=== PATIENT | female | born 1970 | race Caucasian/White ===

== ENCOUNTER 2018-09-11 12:33 | Emergency (ER) | payer OTHER ==
[2018-09-11 13:02] VITALS: BP 155/106
--- NOTE | 2018-09-11 13:09 | EDM.PDOC ---
ED HPI GENERAL MEDICAL PROBLEM - General Chief Complaint: Head Injury Stated Complaint: HEAD INJURY Time Seen by Provider: 09/11/18 12:44 - History of Present Illness INITIAL COMMENTS - FREE TEXT/NARRATIVE: HISTORY AND PHYSICAL: History of present illness: The patient is a 48-year-old female who presents with persistent discomfort and swelling to the right side of her scalp since she sustained a fall about 3 weeks ago. The patient was going up to status and on the third step she missed it and then fell backwards striking her right parietal scalp area. The patient has not passed out or blacked out but had a big area of soft tissue swelling that has since gone away. After this fall in the first few days she did have some nausea and vomiting and some instability of gait and reenter ears but those symptoms have all improved. The patient says she is concerned now because she has never totally felt quite right and is still felt off in general and now she feels like the area of the old injury is starting to swell up again and is causing discomfort. The patient denies any neck or back pain no weakness numbness or tingling in her extremities and no abdominal pain chest pain or shortness of breath. The patient follows with Dr. Fernandez in the clinic but did not connect with him about the symptoms or these problems. She is eating and drinking normally currently and only intermittently will have some nausea or vomiting due to her anxiety. Review of systems: As per history of present illness and below otherwise all systems reviewed and negative. Past medical history: As per history of present illness and as reviewed below otherwise noncontributory. Surgical history: As per history of present illness and as reviewed below otherwise noncontributory. Social history: No reported history of drug or alcohol abuse. Family history: As per history of present illness and as reviewed below otherwise noncontributory. Physical exam: HEENT: Atraumatic, normocephalic, no palatal scalp deformities appreciated and there is tenderness with palpation of the upper right parietal scalp area without any gross soft tissue swelling defects or deformities, pupils reactive, negative for conjunctival pallor or scleral icterus, mucous membranes moist, throat clear, neck supple, nontender, trachea midline. Lungs: Clear to auscultation, breath sounds equal bilaterally, chest nontender. Heart: S1S2, regular rate and rhythm no overt murmurs Abdomen: Soft, nondistended, nontender. NABS Pelvis: Deferred Genitourinary: Deferred. Rectal: Deferred. Extremities: Atraumatic, range of motion Neurovascular unremarkable. Neuro: Awake, alert, oriented. Cranial nerves II through XII unremarkable. Cerebellum unremarkable. Motor and sensory unremarkable throughout. Exam nonfocal. Diagnostics: CT of the head Therapeutics: Discussed with the patient that as her fall and injury occurred about 3 weeks ago she is currently outside of the concussive syndrome window of 2 weeks and if her CAT scan is negative she would need to be seen by her provider in the clinic and probably referred to neurology for any persistent headaches or symptoms. She states understanding Impression: Prolonged concussive syndrome Definitive disposition and diagnosis as appropriate pending reevaluation and review of above. Head Pain Score (Numeric/FACES): 4 - Related Data Allergies Allergy/AdvReac Type Severity Reaction Status Date / Time hydrocodone bitartrate Allergy Cannot Verified 09/11/18 12:45 [From Vicoprofen] Remember ibuprofen [From Vicoprofen] Allergy Cannot Verified 09/11/18 12:45 Remember meperidine HCl [From Demerol] Allergy Cannot Verified 09/11/18 12:45 Remember promethazine Allergy Cannot Verified 09/11/18 12:45 Remember Home Meds: Home Meds Propranolol HCl [Propranolol] 10 mg PO ASDIRECTED 09/11/18 [History] Past Medical History Other HEENT History: hx of relapsing polychondritis Cardiovascular History: Reports: None, Hypertension Other Respiratory History: hx of bronchopneumonia Gastrointestinal History: Reports: GERD 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: Musculoskeletal History: Reports: Back Pain, Chronic Neurological History: Reports: Migraines Other Neuro History: migraines in the past Psychiatric History: Reports: Anxiety Endocrine/Metabolic History: Reports: Hypothyroidism, Obesity/BMI 30+ Hematologic History: Reports: None Immunologic History: Reports: None Oncologic (Cancer) History: Reports: None Dermatologic History: Reports: None - Infectious Disease History Infectious Disease History: Reports: None - Past Surgical History Head Surgeries/Procedures: Reports: None HEENT Surgical History: Reports: Adenoidectomy, Eye Surgery, Tonsillectomy GI Surgical History: Reports: Hernia, Inguinal, Hernia Repair/Other Female Surgical History: Reports: Breast Implant, Tubal Ligation Social & Family History - Family History Family Medical History: Noncontributory - Tobacco Use Years of Tobacco use: 18 - Caffeine Use Caffeine Use: Reports: Soda - Alcohol Use Days Per Week of Alcohol Use: 7 Number of Drinks Per Day: 2 Total Drinks Per Week: 14 - Recreational Drug Use Recreational Drug Use: No ED ROS GENERAL - Review of Systems Review Of Systems: ROS reveals no pertinent complaints other than HPI. ED EXAM, HEAD INJURY - Physical Exam Exam: See Below (See dictation) Course - Vital Signs Last Recorded V/S: Last Vital Signs Temp 36.3 C 09/11/18 12:47 Pulse 96 09/11/18 12:47 Resp 15 09/11/18 12:47 BP 155/106 H 09/11/18 12:47 Pulse Ox 98 09/11/18 12:47 Departure - Departure Time of Disposition: 14:19 Disposition: Home, Self-Care 01 Condition: Good Clinical Impression: Postconcussion syndrome - Discharge Information Referrals: Wai Fernandez MD [Primary Care Provider] - Forms: ED Department Discharge Additional Instructions: The following information is given to patients seen in the emergency department who are being discharged to home. This information is to outline your options for follow-up care. We provide all patients seen in our emergency department with a follow-up referral. The need for follow-up, as well as the timing and circumstances, are variable depending upon the specifics of your emergency department visit. If you don't have a primary care physician on staff, we will provide you with a referral. We always advise you to contact your personal physician following an emergency department visit to inform them of the circumstance of the visit and for follow-up with them and/or the need for any referrals to a consulting specialist. The emergency department will also refer you to a specialist when appropriate. This referral assures that you have the opportunity for followup care with a specialist. All of these measure are taken in an effort to provide you with optimal care, which includes your followup. Under all circumstances we always encourage you to contact your private physician who remains a resource for coordinating your care. When calling for followup care, please make the office aware that this follow-up is from your recent emergency room visit. If for any reason you are refused follow-up, please contact the [facility] emergency department at and ask to speak to the emergency department charge nurse. [facility] Primary care- Internal Medicine and [facility] [address] [place] [address] Continue with Symptomatic care and [id number] meds as needed. Please call and schedule a follow-up appointment with Dr. Fernandez or one of his associates to further discuss these symptoms and potentially get referral to neurology. Return to ER as needed and as discussed
--- NOTE | 2018-09-11 13:58 | CT ---
INDICATION: headache and bump to head status post falling on concrete for 3 weeks ago. TECHNIQUE: CT Head without i.v. contrast. COMPARISON: None FINDINGS: CSF space: The ventricles are normal for age. Brain: No evidence of mass, acute infarction or hemorrhage is seen. No mass-effect or midline shift is seen. The brain parenchyma is otherwise normal in appearance with preservation of the calle-white matter junction. Calvarium: The visualized paranasal sinuses are well aerated. The mastoid air cells are clear. The visualized orbits are grossly unremarkable. The calvarium is unremarkable in appearance with no fractures identified. IMPRESSION: 1. No evidence of acute infarction, intracranial hemorrhage, or mass-effect seen. Please note that all CT scans at this facility use dose modulation, iterative reconstruction, and/or weight-based dosing when appropriate to reduce radiation dose to as low as reasonably achievable. Dictated by: Santos Zepeda MD @ 09/11/2018 13:57:56 (Electronically Signed)
== END 2018-09-11 14:40 | disposition home or self-care (01) ==
LOC: MW.ED 12:33
DX: F07.81 Postconcussional syndrome (principal); I10 Essential (primary) hypertension; E03.9 Hypothyroidism, unspecified; Z88.5 Allergy status to narcotic agent; Z88.8 Allergy status to other drugs, medicaments and biological substances; Z79.899 Other long term (current) drug therapy
CPT/HCPCS: 70450; 70450-26; 99283-25

== ENCOUNTER 2019-01-31 14:06 | Inpatient (IN) | payer OTHER ==
[2019-01-31] MEDS ORDERED: Magnesium Sulfate (4.06 MEQ/ML) 1 GM/2 ML SDV IV ONE (14:12)
[2019-01-31] MEDS ORDERED: Sodium Chloride 0.9% 1,000 ML IV ONE (14:12)
[2019-01-31] MEDS ORDERED: Thiamine 500 MG in Sodium Chloride 0.9% 100 ML IV ONE (14:12)
[2019-01-31] MEDS ORDERED: Sodium Chloride 0.9% 10 ML Syringe FLUSH PRN (14:14)
[2019-01-31] MEDS ORDERED: Sodium Chloride 0.9% 2.5 ML Syringe FLUSH PRN (14:14)
[2019-01-31] MEDS ORDERED: THIAMINE IV ONE ×5 (14:30)
[2019-01-31] MEDS ORDERED: VITAMIN K IV ONE ×5 (14:30)
[2019-01-31] MEDS ORDERED: [UNRECOGNIZED DRUG - OTHER] IV ONE ×5 (14:30)
[2019-01-31] MEDS ORDERED: MVI IV ONE ×5 (14:30)
[2019-01-31] MEDS ORDERED: FOLIC ACID IV ONE ×5 (14:30)
--- NOTE | 2019-01-31 14:30 | EDM.PDOC ---
ED HPI GENERAL MEDICAL PROBLEM - General Chief Complaint: Eye Problems Time Seen by Provider: 01/31/19 14:20 Source of Information: Reports: Patient History Limitations: Reports: No Limitations - History of Present Illness INITIAL COMMENTS - FREE TEXT/NARRATIVE: HISTORY AND PHYSICAL: History of present illness: Patient is a 48-year-old female who presents to the emergency room with complaints of visual changes. She states over the past 2 weeks she has noticed some visual changes (difficulty focusing on objects near and far), difficulty with ambulation, weakness, tremors, and generally feeling un well. Symptoms have progressively gotten worse. See saw Dr Bowen, clinical lab assistant at [facility]. He was able to do a full eye exam but was concerned she may have Wernicke Encephalopathy. Patient reports she drinks less than a gallon of hard alcohol daily ("2.5 daily"). Denies any drug abuse. Review of systems: As per history of present illness and below otherwise all systems reviewed and negative. Past medical history: As per history of present illness and as reviewed below otherwise noncontributory. Surgical history: As per history of present illness and as reviewed below otherwise noncontributory. Social history: See social history for further information Family history: As per history of present illness and as reviewed below otherwise noncontributory. Physical exam: General: Well-developed and well-nourished 48-year-old female. Alert and oriented. Nontoxic appearing and in no acute distress. HEENT: Atraumatic, normocephalic, pupils equal and reactive bilaterally, patient does appear to have strabismus, unable to move eyes [id number]. Upon looking up and down she does have nystagmus bilaterally. Denies any pain with ocular movement. negative for conjunctival pallor or scleral icterus, mucous membranes moist, TMs normal bilaterally, throat clear, neck supple, nontender, trachea midline. No drooling or trismus noted. No meningeal signs. No hot potato voice noted. Lungs: Clear to auscultation, breath sounds equal bilaterally, chest nontender. Heart: S1S2, regular rate and rhythm without overt murmur Abdomen: Soft, nondistended, nontender. Negative for masses or hepatosplenomegaly. Negative for costovertebral tenderness. Pelvis: Stable nontender. Skin: Intact, warm, dry. No lesions or rashes noted. Extremities: Atraumatic, moves all extremities per self without difficulty or deficits, negative for cords or calf pain. Neurovascular unremarkable. Neuro: Awake, alert, oriented. Cranial nerves II through XII unremarkable. Cerebellum unremarkable. Motor and sensory unremarkable throughout. Exam nonfocal. Notes: Dr Friedman spoke with Dr Bowen via phone prior to patient arrival. Dr Friedman directly involved in this case. Patient has a few electrolyte imbalances that will require correction. Dr. Thrasher was consulted on this case. Debra LOGIST[employer]SH[employer]PER was consulted and is down here to see the patient. Patient will be admitted for further care and management. Diagnostics: CBC, CMP, troponin, EKG, head CT, magnesium, chest x-ray, Vit B1 Therapeutics: IV fluids, banana bag, Thiamine, Magnesium Impression: Hypokalemia Wernicke Encephalopy Plan: Admission with telemetry Definitive disposition and diagnosis as appropriate pending reevaluation and review of above. Duration: Week(s): Headache Pain Score (Numeric/FACES): 2 - Related Data Allergies Allergy/AdvReac Type Severity Reaction Status Date / Time hydrocodone bitartrate Allergy Cannot Verified 01/31/19 14:19 [From Vicoprofen] Remember ibuprofen [From Vicoprofen] Allergy Cannot Verified 01/31/19 14:19 Remember meperidine HCl [From Demerol] Allergy Cannot Verified 01/31/19 14:19 Remember promethazine Allergy Cannot Verified 01/31/19 14:19 Remember Home Meds: Home Meds . 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: Musculoskeletal History: Reports: Back Pain, Chronic Neurological History: Reports: Migraines Other Neuro History: migraines in the past Psychiatric History: Reports: Anxiety Endocrine/Metabolic History: Reports: Hypothyroidism, Obesity/BMI 30+ Hematologic History: Reports: None Immunologic History: Reports: None Oncologic (Cancer) History: Reports: None Dermatologic History: Reports: None - Infectious Disease History Infectious Disease History: Reports: None - Past Surgical History Head Surgeries/Procedures: Reports: None HEENT Surgical History: Reports: Adenoidectomy, Eye Surgery, Tonsillectomy GI Surgical History: Reports: Hernia, Inguinal, Hernia Repair/Other Female Surgical History: Reports: Breast Implant, Tubal Ligation Social & Family History - Family History Family Medical History: Noncontributory - Caffeine Use Caffeine Use: Reports: Soda ED ROS GENERAL - Review of Systems Review Of Systems: ROS reveals no pertinent complaints other than HPI. ED EXAM GENERAL W FULL EYE - Physical Exam Exam: See Below (See dictation) Course - Vital Signs Last Recorded V/S: Last Vital Signs Temp 96.7 F 01/31/19 14:14 Pulse 105 H 01/31/19 14:14 Resp 18 01/31/19 14:14 BP 97/70 01/31/19 14:14 Pulse Ox 100 01/31/19 14:14 - Orders/Labs/Meds Orders: Active Orders 24 hr Category Date Time Status Patient Status [ADT] Stat ADT 01/31/19 16:07 Active EKG Documentation Completion [RC] STAT Care 01/31/19 14:14 Active Telemetry Monitoring [Cardiac Monitoring] [RC] . Care 01/31/19 16:08 Active DIRECTED NPO [Nothing Per Oral Diet] [DIET] Diet 01/31/19 Dinner Active Abdomen Pelvis wo Cont [CT] Stat Exams 01/31/19 16:09 Ordered VIT. B1, WHOLE BLOOD [REF] Stat Lab 01/31/19 14:53 Ordered Magnesium Sulfate/Water [Magnesium Sulfate in Water Med 01/31/19 16:08 Active Premix] 4 gm Premix Bag 1 bag IV ONETIME Pantoprazole [ProTONIX IV] 40 mg Med 01/31/19 16:30 Active Sodium Chloride 0.9% [Normal Saline] 10 ml IV Q24H Potassium Chloride Riders [KCL 40 MEQ in Water 100 ML] Med 01/31/19 15:29 Active 40 meq Premix Bag 1 bag IV ONETIME Sodium Chloride 0.9% [Normal Saline] 1,000 ml Med 01/31/19 15:30 Active IV ASDIRECTED Sodium Chloride 0.9% [Saline Flush] Med 01/31/19 14:14 Active 10 ml FLUSH ASDIRECTED PRN Sodium Chloride 0.9% [Saline Flush] Med 01/31/19 14:14 Active 2.5 ml FLUSH ASDIRECTED PRN Saline Lock Insert [OM.PC] Stat Oth 01/31/19 14:14 Ordered Resuscitation Status Stat Resus Stat 01/31/19 16:25 Ordered Medication Orders Potassium Chloride 40 meq/ (Premix) 100 mls @ 25 mls/hr IV ONETIME ONE Stop: 01/31/19 19:28 Last Admin: 01/31/19 15:50 Dose: 25 mls/hr Sodium Chloride (Normal Saline) 1,000 mls @ 150 mls/hr IV ASDIRECTED LUIS DANIEL Last Admin: 01/31/19 15:51 Dose: 150 mls/hr Magnesium Sulfate 4 gm/ Premix 100 mls @ 50 mls/hr IV ONETIME ONE Stop: 01/31/19 18:07 Pantoprazole Sodium 40 mg/ (Sodium Chloride) 10 mls @ 300 mls/hr IV Q24H LUIS DANIEL Sodium Chloride (Saline Flush) 10 ml FLUSH ASDIRECTED PRN PRN Reason: Keep Vein Open Last Admin: 01/31/19 14:48 Dose: 10 ml Sodium Chloride (Saline Flush) 2.5 ml FLUSH ASDIRECTED PRN PRN Reason: Keep Vein Open Last Admin: 01/31/19 14:48 Dose: 2.5 ml Labs: Laboratory Tests 01/31/19 01/31/19 01/31/19 Range/Units 14:35 14:35 14:35 WBC 10.10 (4.0-11.0) K/uL RBC 3.90 L (4.30-5.90) M/uL Hgb 13.2 (12.0-16.0) g/dL Hct 37.4 (36.0-46.0) % MCV 95.9 (80.0-98.0) fL MCH 33.8 H (27.0-32.0) pg MCHC 35.3 (31.0-37.0) g/dL RDW Std Deviation 47.1 (28.0-62.0) fl RDW Coeff of Unruly 14 (11.0-15.0) % Plt Count 347 (150-400) K/uL MPV 10.00 (7.40-12.00) fL Neut % (Auto) 75.7 (48.0-80.0) % Lymph % (Auto) 15.1 L (16.0-40.0) % Wheeler % (Auto) 8.8 (0.0-15.0) % Eos % (Auto) 0.1 (0.0-7.0) % Baso % (Auto) 0.3 (0.0-1.5) % Neut # (Auto) 7.6 H (1.4-5.7) K/uL Lymph # (Auto) 1.5 (0.6-2.4) K/uL Wheeler # (Auto) 0.9 H (0.0-0.8) K/uL Eos # (Auto) 0.0 (0.0-0.7) K/uL Baso # (Auto) 0.0 (0.0-0.1) K/uL Nucleated RBC % 0.6 /100WBC Nucleated RBCs # 0 K/uL Sodium 133 L (136-145) mmol/L Potassium 2.3 L* (3.5-5.1) mmol/L Chloride 88 L (98-107) mmol/L Carbon Dioxide 31.0 (21.0-32.0) mmol/L BUN 10 (7.0-18.0) mg/dL Creatinine 1.4 H (0.6-1.0) mg/dL Est Cr Clr Drug Dosing 45.50 mL/min Estimated GFR (MDRD) 40.0 ml/min Glucose 146 H (74-106) mg/dL Calcium 9.4 (8.5-10.1) mg/dL Phosphorus (2.6-4.7) mg/dL Magnesium 1.3 L (1.8-2.4) mg/dL Total Bilirubin 1.4 H (0.2-1.0) mg/dL AST 45 H (15-37) IU/L ALT 23 (14-63) IU/L Alkaline Phosphatase 187 H (46-116) U/L Troponin I < 0.050 (0.000-0.056) ng/mL Total Protein 7.5 (6.4-8.2) g/dL Albumin 3.3 L (3.4-5.0) g/dL Globulin 4.2 H (2.6-4.0) g/dL Albumin/Globulin Ratio 0.8 L (0.9-1.6) Lipase (73-393) U/L Ethyl Alcohol < 3.0 mg/dL 01/31/19 Range/Units 14:35 WBC (4.0-11.0) K/uL RBC (4.30-5.90) M/uL Hgb (12.0-16.0) g/dL Hct (36.0-46.0) % MCV (80.0-98.0) fL MCH (27.0-32.0) pg MCHC (31.0-37.0) g/dL RDW Std Deviation (28.0-62.0) fl RDW Coeff of Unruly (11.0-15.0) % Plt Count (150-400) K/uL MPV (7.40-12.00) fL Neut % (Auto) (48.0-80.0) % Lymph % (Auto) (16.0-40.0) % Wheeler % (Auto) (0.0-15.0) % Eos % (Auto) (0.0-7.0) % Baso % (Auto) (0.0-1.5) % Neut # (Auto) (1.4-5.7) K/uL Lymph # (Auto) (0.6-2.4) K/uL Wheeler # (Auto) (0.0-0.8) K/uL Eos # (Auto) (0.0-0.7) K/uL Baso # (Auto) (0.0-0.1) K/uL Nucleated RBC % /100WBC Nucleated RBCs # K/uL Sodium (136-145) mmol/L Potassium (3.5-5.1) mmol/L Chloride (98-107) mmol/L Carbon Dioxide (21.0-32.0) mmol/L BUN (7.0-18.0) mg/dL Creatinine (0.6-1.0) mg/dL Est Cr Clr Drug Dosing mL/min Estimated GFR (MDRD) ml/min Glucose (74-106) mg/dL Calcium (8.5-10.1) mg/dL Phosphorus 2.1 L (2.6-4.7) mg/dL Magnesium (1.8-2.4) mg/dL Total Bilirubin (0.2-1.0) mg/dL AST (15-37) IU/L ALT (14-63) IU/L Alkaline Phosphatase (46-116) U/L Troponin I (0.000-0.056) ng/mL Total Protein (6.4-8.2) g/dL Albumin (3.4-5.0) g/dL Globulin (2.6-4.0) g/dL Albumin/Globulin Ratio (0.9-1.6) Lipase 456 H (73-393) U/L Ethyl Alcohol mg/dL Meds: Medications Generic Name Dose Route Start Last Admin Trade Name Freq PRN Reason Stop Dose Admin Potassium Chloride 40 meq/ 100 mls @ 25 mls/hr 01/31/19 15:29 01/31/19 15:50 Premix IV 01/31/19 19:28 25 mls/hr ONETIME ONE Administration Sodium Chloride 1,000 mls @ 150 mls/hr 01/31/19 15:30 01/31/19 15:51 Normal Saline IV 150 mls/hr ASDIRECTED LUIS DANIEL Administration Magnesium Sulfate 4 gm/ Premix 100 mls @ 50 mls/hr 01/31/19 16:08 IV 01/31/19 18:07 ONETIME ONE Pantoprazole Sodium 40 mg/ 10 mls @ 300 mls/hr 01/31/19 16:30 Sodium Chloride IV Q24H LUIS DANIEL Sodium Chloride 10 ml 01/31/19 14:14 01/31/19 14:48 Saline Flush FLUSH 10 ml ASDIRECTED PRN Administration Keep Vein Open Sodium Chloride 2.5 ml 01/31/19 14:14 01/31/19 14:48 Saline Flush FLUSH 2.5 ml ASDIRECTED PRN Administration Keep Vein Open Discontinued Medications Generic Name Dose Route Start Last Admin Trade Name Freq PRN Reason Stop Dose Admin Sodium Chloride 1,000 mls @ 999 mls/hr 01/31/19 14:12 01/31/19 15:33 Normal Saline IV 01/31/19 15:12 Not Given STAT ONE Multivitamins/Minerals 10 ml/ 1,017.2 mls @ 999 mls/hr 01/31/19 14:30 14:46 Thiamine HCl 500 mg/ Folic IV 01/31/19 15:31 999 mls/hr Acid 1 mg/ Magnesium Sulfate 1 ASDIRECTED ONE Administration gm/ Sodium Chloride Departure - Departure Time of Disposition: 16:40 Disposition: Admitted As Inpatient 65 Clinical Impression: Wernicke encephalopathy, Hypokalemia - Discharge Information Referrals: PCP,Unknown [Primary Care Provider] - Forms: ED Department Discharge - My Orders Last 24 Hours: My Active Orders 01/31/19 14:14 EKG Documentation Completion [RC] STAT Sodium Chloride 0.9% [Saline Flush] 10 ml FLUSH ASDIRECTED PRN Sodium Chloride 0.9% [Saline Flush] 2.5 ml FLUSH ASDIRECTED PRN Saline Lock Insert [OM.PC] Stat 01/31/19 14:53 VIT. B1, WHOLE BLOOD [REF] Stat 01/31/19 15:29 Potassium Chloride Riders [KCL 40 MEQ in Water 100 ML] 40 meq Premix Bag 1 bag IV ONETIME 01/31/19 15:30 Sodium Chloride 0.9% [Normal Saline] 1,000 ml IV ASDIRECTED - Assessment/Plan Last 24 Hours: My Active Orders 01/31/19 14:14 EKG Documentation Completion [RC] STAT Sodium Chloride 0.9% [Saline Flush] 10 ml FLUSH ASDIRECTED PRN Sodium Chloride 0.9% [Saline Flush] 2.5 ml FLUSH ASDIRECTED PRN Saline Lock Insert [OM.PC] Stat 01/31/19 14:53 VIT. B1, WHOLE BLOOD [REF] Stat 01/31/19 15:29 Potassium Chloride Riders [KCL 40 MEQ in Water 100 ML] 40 meq Premix Bag 1 bag IV ONETIME 01/31/19 15:30 Sodium Chloride 0.9% [Normal Saline] 1,000 ml IV ASDIRECTED
--- NOTE | 2019-01-31 15:17 | CR ---
Chest: Frontal view of the chest was obtained utilizing portable technique. Comparison: Prior chest x-ray of 05/19/14. Heart size and mediastinum are normal. Lungs are clear. Bony structures are grossly intact. Impression: Nothing acute is seen on portable chest x-ray. Diagnostic code #1 MTDD
[2019-01-31 15:18] LABS: BLOOD UREA NITROGEN,BUN 10 mg/dL (7.0-18.0); CHLORIDE,CL 88 mmol/L (98-107); GLUCOSE RANDOM 146 mg/dL (74-106); SODIUM,NA 133 mmol/L (136-145)
[2019-01-31 15:29] LABS: POTASSIUM,K 2.3 mmol/L (3.5-5.1)
[2019-01-31] MEDS ORDERED: Potassium Chloride Riders 40 MEQ in Premix Bag 1 BAG IV ONE (15:29)
[2019-01-31] MEDS ORDERED: Sodium Chloride 0.9% 1,000 ML IV SCH ×2 (15:30→16:45)
[2019-01-31] MEDS ORDERED: Magnesium Sulfate/Water 4 GM in Premix Bag 1 BAG IV ONE (16:08)
--- NOTE | 2019-01-31 16:22 | CT ---
Indication: Ataxia and blurred vision. Technique: Multiple contiguous axial images were obtained from the skullbase to the vertex without intravenous contrast enhancement. Please note that all CT scans at this facility use dose modulation, iterative reconstruction, and/or weight-based dosing when appropriate to reduce radiation dose to as low as reasonably achievable. Comparison: September 11, 2018. Findings: The ventricles are symmetric and normal in size and morphology. The basal cisterns are widely patent. No intra-axial or extra-axial hemorrhage is identified. No mass, mass effect or midline shift is seen. The bony calvarium is intact. Visualized paranasal sinuses and mastoid air cells are relatively clear. Minimal mucosal thickening is identified in the right maxillary sinus. Impression: No acute intracranial process. Consideration could be given to an MRI if clinically indicated. Please note that all CT scans at this facility use dose modulation, iterative reconstruction, and/or weight-based dosing when appropriate to reduce radiation dose to as low as reasonably achievable. Dictated by Marj Greco MD @ Jan 31 2019 4:20PM Signed by Dr. Marj Greco @ Jan 31 2019 4:21PM
--- NOTE | 2019-01-31 16:40 | PCM.HP.2 ---
H&P History of Present Illness - General Date of Service: 01/31/19 Admit Problem/Dx: Admission Diagnosis/Problem Admission Diagnosis/Problem Alcohol withdrawal syndrome Source of Information: Patient, Old Records History Limitations: Reports: No Limitations - History of Present Illness Initial Comments - Free Text/Narative: This 48 year old female with pmh of GERD with ulcers, alcohol abuse presented initially to Dr [facility] with concerns of vision problems. He fully evaluated her but was concerned about Wernicke's encephalopathy and urged her to go to the ED. She reports she has had worsening visual concerns along with ataxia at home. She reports she is unable to ambulate without holding onto things. From review of record, she had a fall hitting her head in September, she has had headaches and post concussive symptoms with ataxia. She has been followed by PCP, Dr Fernandez. She reports the vision worsened, which prompted her to see Dr Maria today. She reports she has not been able to eat or drink much recently, but drinking her 2-3 drinks of Diet coke and Whiskey each night. She reports she does get shaky when she doesn't have alcohol no seizure history with alcohol withdrawal. She doesn't appear to be forthcoming with amount of alcohol usage. She chews 2 tins of tobacco per week and no recreational drug use. In the ED, CBC WNL, platelets 347,000. She was noted to have hypokalemia, 2.3, chloride 88, BUN 10, Cr 1.4, phosphorus 2.1, Magnesium 1.3 Bilirubin 1.4, AST45 , ALT 23, Alk phos 145. [id number]. Lipase noted to be 456. Head CT negative. CXR negative. She was treated with MVI bag with folic acid and 500 mg Thiamine. She was admitted secondary to alcohol withdrawal suspected Wernicke 's encephalopathy, and pancreatitis. PCP, Dr Fernandez: I spoke with Dr Fernandez regarding admission. He is aware of current treatment plan. Headache Pain Score (Numeric/FACES): 2 - Related Data Allergies/Adverse Reactions: Allergies Allergy/AdvReac Type Severity Reaction Status Date / Time hydrocodone bitartrate Allergy Cannot Verified 01/31/19 14:19 [From Vicoprofen] Remember ibuprofen [From Vicoprofen] Allergy Cannot Verified 01/31/19 14:19 Remember meperidine HCl [From Demerol] Allergy Cannot Verified 01/31/19 14:19 Remember promethazine Allergy Cannot Verified 01/31/19 14:19 Remember Home Medications: Home Meds . [No Known Home Meds] 01/31/19 [History] Past Medical History Other HEENT History: hx of relapsing polychondritis Cardiovascular History: Reports: Hypertension (was started on propranolol, but didn't like how it made her feel.) Other Respiratory History: hx of bronchopneumonia Gastrointestinal History: Reports: GERD, [employer] History: Reports: Musculoskeletal History: Reports: Back Pain, Chronic Neurological History: Reports: Migraines Other Neuro History: migraines in the past Psychiatric History: Reports: Addiction (alcohol), Anxiety Endocrine/Metabolic History: Reports: Hypothyroidism, Obesity/BMI 30+ Hematologic History: Reports: None Immunologic History: Reports: None Oncologic (Cancer) History: Reports: None Dermatologic History: Reports: None - Infectious Disease History Infectious Disease History: Reports: None - Past Surgical History Head Surgeries/Procedures: Reports: None HEENT Surgical History: Reports: Adenoidectomy, Eye Surgery, Tonsillectomy GI Surgical History: Reports: Hernia, Inguinal, Hernia Repair/Other Female Surgical History: Reports: Breast Implant, Tubal Ligation Social & Family History - Family History Family Medical History: Noncontributory - Tobacco Use Smoking Status *Q: Never Smoker Tobacco Use Within Last Twelve Months: Smokeless Tobacco (2 tins per week) - Caffeine Use Caffeine Use: Reports: Soda - Alcohol Use Days Per Week of Alcohol Use: 7 Number of Drinks Per Day: 3 Total Drinks Per Week: 21 Alcohol Use Frequency: Daily - Recreational Drug Use Recreational Drug Use: No H&P Review of Systems - Review of Systems: Review Of Systems: See Below General: Reports: Malaise. Denies: Fever, Chills HEENT: Reports: Visual Changes (blurred vision, no double vision, trouble focusing) Pulmonary: Reports: No Symptoms. Denies: Shortness of Breath, Cough, Sputum Cardiovascular: Reports: No Symptoms. Denies: Chest Pain Gastrointestinal: Reports: Abdominal Pain (pigastric), Constipation, Nausea. Denies: Black Stool, Bloody Stool, Diarrhea Genitourinary: Reports: Dysuria Musculoskeletal: Reports: No Symptoms. Denies: Neck Pain Skin: Reports: No Symptoms Psychiatric: Reports: Anxiety. Denies: Suicidal Ideation Neurological: Reports: Paresthesia (legs intermittently), Difficulty Walking, Weakness, Gait Disturbance Hematologic/Lymphatic: Reports: No Symptoms Immunologic: Reports: No Symptoms Exam - Exam Exam: See Below - Vital Signs Vital Signs: Last Vital Signs Temp 96.7 F 01/31/19 14:14 Pulse 105 H 01/31/19 14:14 Resp 18 01/31/19 14:14 BP 97/70 01/31/19 14:14 Pulse Ox 100 01/31/19 14:14 Weight: 65.771 kg - Exam Quality Assessment: Supplemental Oxygen General: Alert, Oriented, Cooperative HEENT: Conjunctiva Clear, Hearing Intact, Normal Nasal Septum, Pupils Equal, Pupils Reactive, Other (constantly looking around, attempting to focus vision during interview.) Lungs: Clear to Auscultation, Normal Respiratory Effort Cardiovascular: Regular Rate, Regular Rhythm GI/Abdominal Exam: Normal Bowel Sounds, Soft, No Distention, Tender (epigastric region, no murphys sign) Extremities: Normal Inspection, Non-Tender, No Pedal Edema Neuro Extensive - Mental Status: Alert Neuro Extensive - Motor, Sensory, Reflexes: CN II-XII Intact, Abnormal Gait ( ataxia noted) Psychiatric: Alert, Normal Affect, Normal Mood, Anxious - Patient Data Lab Results Last 24 hrs: Laboratory Results - last 24 hr 01/31/19 01/31/19 01/31/19 Range/Units 14:35 14:35 14:35 WBC 10.10 (4.0-11.0) K/uL RBC 3.90 L (4.30-5.90) M/uL Hgb 13.2 (12.0-16.0) g/dL Hct 37.4 (36.0-46.0) % MCV 95.9 (80.0-98.0) fL MCH 33.8 H (27.0-32.0) pg MCHC 35.3 (31.0-37.0) g/dL RDW Std Deviation 47.1 (28.0-62.0) fl RDW Coeff of Unruly 14 (11.0-15.0) % Plt Count 347 (150-400) K/uL MPV 10.00 (7.40-12.00) fL Neut % (Auto) 75.7 (48.0-80.0) % Lymph % (Auto) 15.1 L (16.0-40.0) % [place] % (Auto) 8.8 (0.0-15.0) % Eos % (Auto) 0.1 (0.0-7.0) % Baso % (Auto) 0.3 (0.0-1.5) % Neut # (Auto) 7.6 H (1.4-5.7) K/uL Lymph # (Auto) 1.5 (0.6-2.4) K/uL [place] # (Auto) 0.9 H (0.0-0.8) K/uL Eos # (Auto) 0.0 (0.0-0.7) K/uL Baso # (Auto) 0.0 (0.0-0.1) K/uL Nucleated RBC % 0.6 /100WBC Nucleated RBCs # 0 K/uL Sodium 133 L (136-145) mmol/L Potassium 2.3 L* (3.5-5.1) mmol/L Chloride 88 L (98-107) mmol/L Carbon Dioxide 31.0 (21.0-32.0) mmol/L BUN 10 (7.0-18.0) mg/dL Creatinine 1.4 H (0.6-1.0) mg/dL Est Cr Clr Drug Dosing 45.50 mL/min Estimated GFR (MDRD) 40.0 ml/min Glucose 146 H (74-106) mg/dL Calcium 9.4 (8.5-10.1) mg/dL Magnesium 1.3 L (1.8-2.4) mg/dL Total Bilirubin 1.4 H (0.2-1.0) mg/dL AST 45 H (15-37) IU/L ALT 23 (14-63) IU/L Alkaline Phosphatase 187 H (46-116) U/L Troponin I < 0.050 (0.000-0.056) ng/mL Total Protein 7.5 (6.4-8.2) g/dL Albumin 3.3 L (3.4-5.0) g/dL Globulin 4.2 H (2.6-4.0) g/dL Albumin/Globulin Ratio 0.8 L (0.9-1.6) Ethyl Alcohol < 3.0 mg/dL Result Diagrams: 01/31/19 14:35 01/31/19 14:35 *Q Meaningful Use (ADM) - VTE *Q VTE Pharmacological Contraindications *Q: Risk of Bleeding (alcohol abuse, possible varices.) - Problem List (1) Wernicke encephalopathy SNOMED Code(s): 64948119 ICD Code: E51.2 - WERNICKE'S ENCEPHALOPATHY Status: Suspected Current Visit: Yes (2) Hypomagnesemia SNOMED Code(s): 628940194 ICD Code: E83.42 - HYPOMAGNESEMIA Status: Acute Current Visit: Yes (3) Hypophosphatemia SNOMED Code(s): 2782682 ICD Code: E83.39 - OTHER DISORDERS OF PHOSPHORUS METABOLISM Status: Acute Current Visit: Yes (4) UTI (urinary tract infection) SNOMED Code(s): 02494884 ICD Code: N39.0 - URINARY TRACT INFECTION, SITE NOT SPECIFIED Status: Acute Current Visit: Yes (5) Blurred vision SNOMED Code(s): 177317992 ICD Code: H53.8 - OTHER VISUAL DISTURBANCES Status: Acute Current Visit: Yes (6) Pancreatitis SNOMED Code(s): 76189804 ICD Code: K85.90 - ACUTE PANCREATITIS WITHOUT NECROSIS OR INFECTION, UNSP Status: Acute Current Visit: Yes Qualifiers: Pancreatitis type: alcohol induced (7) Hypokalemia SNOMED Code(s): 33732763 ICD Code: E87.6 - HYPOKALEMIA Status: Acute Current Visit: Yes (8) Alcohol abuse SNOMED Code(s): 41145790 ICD Code: F10.10 - ALCOHOL ABUSE, UNCOMPLICATED Status: Chronic Current Visit: Yes (9) HTN (hypertension) SNOMED Code(s): 02743785 ICD Code: I10 - ESSENTIAL (PRIMARY) HYPERTENSION Status: Chronic Current Visit: Yes Qualifiers: Hypertension type: essential hypertension Qualified Code(s): I10 - Essential (primary) hypertension Problem List Initiated/Reviewed/Updated: Yes Orders Last 24hrs: Active Orders 24 hr Category Date Time Status Patient Status [ADT] Stat ADT 01/31/19 16:07 Active EKG Documentation Completion [RC] STAT Care 01/31/19 14:14 Active Telemetry Monitoring [Cardiac Monitoring] [RC] . Care 01/31/19 16:08 Active DIRECTED NPO [Nothing Per Oral Diet] [DIET] Diet 01/31/19 Dinner Active Abdomen Pelvis wo Cont [CT] Stat Exams 01/31/19 16:09 Ordered LIPASE [CHEM] Stat Lab 01/31/19 14:35 Received PHOSPHORUS [CHEM] Stat Lab 01/31/19 14:35 Received VIT. B1, WHOLE BLOOD [REF] Stat Lab 01/31/19 14:53 Ordered Magnesium Sulfate/Water [Magnesium Sulfate in Water Med 01/31/19 16:08 Active Premix] 4 gm Premix Bag 1 bag IV ONETIME Pantoprazole [ProTONIX IV] 40 mg Med 01/31/19 16:30 Ordered Sodium Chloride 0.9% [Normal Saline] 10 ml IV Q24H Potassium Chloride Riders [KCL 40 MEQ in Water 100 ML] Med 01/31/19 15:29 Active 40 meq Premix Bag 1 bag IV ONETIME Sodium Chloride 0.9% [Normal Saline] 1,000 ml Med 01/31/19 15:30 Active IV ASDIRECTED Sodium Chloride 0.9% [Saline Flush] Med 01/31/19 14:14 Active 10 ml FLUSH ASDIRECTED PRN Sodium Chloride 0.9% [Saline Flush] Med 01/31/19 14:14 Active 2.5 ml FLUSH ASDIRECTED PRN Saline Lock Insert [OM.PC] Stat Oth 01/31/19 14:14 Ordered Resuscitation Status Stat Resus Stat 01/31/19 16:25 Ordered Medication Orders Potassium Chloride 40 meq/ (Premix) 100 mls @ 25 mls/hr IV ONETIME ONE Stop: 01/31/19 19:28 Last Admin: 01/31/19 15:50 Dose: 25 mls/hr Sodium Chloride (Normal Saline) 1,000 mls @ 150 mls/hr IV ASDIRECTED LUIS DANIEL Last Admin: 01/31/19 15:51 Dose: 150 mls/hr Magnesium Sulfate 4 gm/ Premix 100 mls @ 50 mls/hr IV ONETIME ONE Stop: 01/31/19 18:07 Pantoprazole Sodium 40 mg/ (Sodium Chloride) 10 mls @ 300 mls/hr IV Q24H LUIS DANIEL Sodium Chloride (Saline Flush) 10 ml FLUSH ASDIRECTED PRN PRN Reason: Keep Vein Open Last Admin: 01/31/19 14:48 Dose: 10 ml Sodium Chloride (Saline Flush) 2.5 ml FLUSH ASDIRECTED PRN PRN Reason: Keep Vein Open Last Admin: 01/31/19 14:48 Dose: 2.5 ml Assessment/Plan Comment:: This 48 year old female admitted with alcohol withdrawal suspected Wernicke's encephalopathy and several electrolye abnormalities 1. Alcohol withdrawal: Monitor CIWAA, Ativan PRN for CIWAA. Seizure precautions. Provide support for sobriety. 2. Wernicke's Encephalopathy: MRI of brain ordered. Continue Thiamine 500 mg TID for 2 days, folic acid as well. 3. Electrolyte abnormalities: Replace potassium, magnesium, and phosphate tonight. Recheck Potassium this evening. Continue IVFs with potassium. Monitor on telemetry. Recheck all in am. 4. Pancreatitis: may be more acute on chronic. Lipid panel ok. CT reveals no acute inflammation of pancreas. Will obtain Abd US tomorrow. 5. UTI: US reveals + bacteria with pyuria. Add Rocephin. UC pending. 6. PUD: hx of gastric ulcers. Takes Rolaids at home. Add Protonix and monitor. Denies black of bloody stools. 7. HTN: Monitor, reports she stopped taking Propranolol due to how it made her feel. Monitor. VTE prophylaxis: SCDs due to risk of bleeding secondary to alcohol abuse and PUD Dispo: 2-3 days pending improvement. - Mortality Measure Prognosis:: Good
[2019-01-31] MEDS ORDERED: Potassium Phosphates 30 MMOLE in Sodium Chloride 0.9% 500 ML IV ONE ×2 (16:51→19:30)
[2019-01-31] MEDS ORDERED: Ondansetron 4 MG/2 ML SDV IVPUSH PRN (16:52)
[2019-01-31] MEDS ORDERED: LORazepam 2 MG/ML SDV IVPUSH PRN (17:02)
[2019-01-31] MEDS ORDERED: Morphine 2 MG/ML Syringe IVPUSH PRN (17:07)
--- NOTE | 2019-01-31 17:18 | CT ---
INDICATION: Abdominal pain. TECHNIQUE: Noncontrast CT of the abdomen and pelvis. COMPARISON: None. FINDINGS: Clear included lung bases. Mild degenerative facet arthropathy of the mid lumbar spine. Benign bone island posterior right iliac wing. The unenhanced liver demonstrates mildly decreased density likely related to fatty infiltration. No intrahepatic mass or biliary ductal dilatation. No splenomegaly. Normal pancreas, partly contracted gallbladder, adrenal glands, and kidneys. There is no evidence for appendicitis or diverticular disease. There is no evidence for bowel obstruction or ileus. The stomach and duodenum although largely decompressed are grossly unremarkable. Minimal scattered vascular calcification within a normal caliber abdominal aorta the uterus, urinary bladder, and both adnexa are within normal limits. IMPRESSION: 1. No acute abdominopelvic process identified. 2. Hepatic fatty infiltration. Please note that all CT scans at this facility use dose modulation, iterative reconstruction, and/or weight-based dosing when appropriate to reduce radiation dose to as low as reasonably achievable. Dictated by Sanjay Brandt MD @ Jan 31 2019 5:17PM Signed by Dr. Sanjay Brandt @ Jan 31 2019 5:17PM
[2019-01-31] MEDS: Pantoprazole 40 MG in Sodium Chloride 0.9% 10 ML IV SCH (17:43)
[2019-01-31] MEDS: NS + KCl 20mEq/L 1,000 ML IV SCH (17:46)
[2019-01-31] MEDS ORDERED: Gadobenate Dimeglumine 529 MG/ML 20 ML SDV IVPUSH STA (20:05)
--- NOTE | 2019-01-31 20:39 | MR ---
INDICATION: Ataxia. TECHNIQUE: Multiplanar multisequence MR images were obtained through the brain prior to and following administration of intravenous contrast. COMPARISON: CT brain 09/11/2018. FINDINGS: Small focus of diffusion restriction within the posterior limb of the right internal capsule (series [id number] image 112), concerning for acute infarction. The ventricles and sulci are within normal limits for patient age. No mass effect or midline shift. A few punctate foci of T2 FLAIR hyperintensity in the supratentorial white matter, nonspecific. No intracranial hemorrhage or pathologic extra-axial fluid collection. Developmental venous anomaly within the anterior right frontal lobe. No pathologic intracranial enhancement. The major arterial flow voids of the skullbase are preserved. The globes are symmetric in size. Trace mucosal thickening in the paranasal sinuses. The mastoid air cells are clear. IMPRESSION: 1. Small focus of diffusion restriction within the posterior limb of the right internal capsule is concerning for acute infarction. 2. Few punctate foci of T2 FLAIR hyperintensity in the supratentorial white matter are nonspecific, though differential considerations include sequelae of migraine headaches or minimal chronic microvascular ischemic changes. Dictated by Hieu Valdez MD @ Feb 01 2019 8:54AM Signed by Dr. Hieu Valdez @ Feb 01 2019 9:40AM
[2019-01-31] MEDS ORDERED: Aspirin 325 MG Tab PO ONE (21:03)
[2019-01-31] MEDS: cefTRIAXone 1 GM in Premix Bag 1 BAG IV SCH (21:39)
[2019-01-31] MEDS ORDERED: Thiamine 200 MG/2 ML MDV IV SCH (22:00)
[2019-01-31] MEDS: Thiamine 500 MG in Sodium Chloride 0.9% 100 ML IV SCH (23:09)
[2019-02-01 00:24] LABS: BLOOD UREA NITROGEN,BUN 9 mg/dL (7.0-18.0); CARBON DIOXIDE,CO2 27.7 mmol/L (21.0-32.0); CHLORIDE,CL 102 mmol/L (98-107); GLUCOSE RANDOM 91 mg/dL (74-106); POTASSIUM,K 2.9 mmol/L (3.5-5.1); SODIUM,NA 140 mmol/L (136-145)
[2019-02-01] MEDS: NS + KCl 20mEq/L 1,000 ML IV SCH ×4 (00:50→14:29)
[2019-02-01] MEDS ORDERED: Potassium Chloride 20 MEQ Tab.ER PO ONE (00:54)
[2019-02-01] MEDS: Thiamine 500 MG in Sodium Chloride 0.9% 100 ML IV SCH ×3 (05:11→21:30)
[2019-02-01 07:01] LABS: BLOOD UREA NITROGEN,BUN 7 mg/dL (7.0-18.0); CARBON DIOXIDE,CO2 26.3 mmol/L (21.0-32.0); CHLORIDE,CL 109 mmol/L (98-107); GLUCOSE RANDOM 89 mg/dL (74-106); POTASSIUM,K 3.6 mmol/L (3.5-5.1); SODIUM,NA 145 mmol/L (136-145)
[2019-02-01] MEDS ORDERED: Calcium Gluconate 10% 1 GM/10 ML SDV IV ONE (07:57)
--- NOTE | 2019-02-01 08:15 | PCM.PN ---
- General Info Date of Service: 02/01/19 Admission Dx/Problem (Free Text): Admission Diagnosis/Problem Admission Diagnosis/Problem Alcohol withdrawal syndrome Subjective Update: Reports vision is improved today, but still not at baseline. No chest pain or SOB. Ataxia improving, but again not at baseline. Depth perception very off. Abdominal pain is stable, no change. No nausea. reports tremors are ok. Functional Status: Reports: Pain Controlled, Ambulating, Urinating - Review of Systems General: Reports: No Symptoms. Denies: Fever, Weakness, Fatigue HEENT: Reports: Visual Changes (improving, still not at baseline.). Denies: Headaches Pulmonary: Reports: No Symptoms. Denies: Shortness of Breath Gastrointestinal: Reports: Abdominal Pain (mild epigastric, feeling hungry). Denies: Diarrhea, Melena, Nausea, Vomiting Genitourinary: Reports: No Symptoms. Denies: Dysuria, Frequency, Burning Musculoskeletal: Reports: No Symptoms. Denies: Neck Pain Skin: Reports: No Symptoms Neurological: Reports: Tremors, Difficulty Walking, Gait Disturbance Psychiatric: Reports: No Symptoms - Patient Data Vitals - Most Recent: Last Vital Signs Temp 97.4 F 02/01/19 04:00 Pulse 84 02/01/19 04:00 Resp 16 02/01/19 04:00 BP 82/51 L 02/01/19 04:00 Pulse Ox 97 02/01/19 04:00 Weight - Most Recent: 65.771 kg I&O - Last 24 Hours: Intake & Output 01/31/19 02/01/19 02/01/19 22:59 06:59 14:59 Intake Total 250 2713 Output Total 300 250 Balance -50 2463 Lab Results Last 24 Hours: Laboratory Results - last 24 hr 01/31/19 01/31/19 01/31/19 Range/Units 14:35 14:35 14:35 WBC 10.10 (4.0-11.0) K/uL RBC 3.90 L (4.30-5.90) M/uL Hgb 13.2 (12.0-16.0) g/dL Hct 37.4 (36.0-46.0) % MCV 95.9 (80.0-98.0) fL MCH 33.8 H (27.0-32.0) pg MCHC 35.3 (31.0-37.0) g/dL RDW Std Deviation 47.1 (28.0-62.0) fl RDW Coeff of Unruly 14 (11.0-15.0) % Plt Count 347 (150-400) K/uL MPV 10.00 (7.40-12.00) fL Neut % (Auto) 75.7 (48.0-80.0) % Lymph % (Auto) 15.1 L (16.0-40.0) % [place] % (Auto) 8.8 (0.0-15.0) % Eos % (Auto) 0.1 (0.0-7.0) % Baso % (Auto) 0.3 (0.0-1.5) % Neut # (Auto) 7.6 H (1.4-5.7) K/uL Lymph # (Auto) 1.5 (0.6-2.4) K/uL [place] # (Auto) 0.9 H (0.0-0.8) K/uL Eos # (Auto) 0.0 (0.0-0.7) K/uL Baso # (Auto) 0.0 (0.0-0.1) K/uL Nucleated RBC % 0.6 /100WBC Nucleated RBCs # 0 K/uL Sodium 133 L (136-145) mmol/L Potassium 2.3 L* (3.5-5.1) mmol/L Chloride 88 L (98-107) mmol/L Carbon Dioxide 31.0 (21.0-32.0) mmol/L BUN 10 (7.0-18.0) mg/dL Creatinine 1.4 H (0.6-1.0) mg/dL Est Cr Clr Drug Dosing 45.50 mL/min Estimated GFR (MDRD) 40.0 ml/min Glucose 146 H (74-106) mg/dL Calcium 9.4 (8.5-10.1) mg/dL Phosphorus (2.6-4.7) mg/dL Magnesium 1.3 L (1.8-2.4) mg/dL Total Bilirubin 1.4 H (0.2-1.0) mg/dL AST 45 H (15-37) IU/L ALT 23 (14-63) IU/L Alkaline Phosphatase 187 H (46-116) U/L Troponin I < 0.050 (0.000-0.056) ng/mL Total Protein 7.5 (6.4-8.2) g/dL Albumin 3.3 L (3.4-5.0) g/dL Globulin 4.2 H (2.6-4.0) g/dL Albumin/Globulin Ratio 0.8 L (0.9-1.6) Triglycerides (0-200) mg/dL Cholesterol (50-200) mg/dL LDL Cholesterol, Calc (60-180) mg/dL VLDL Cholesterol (5-55) mg/dL HDL Cholesterol (40-60) mg/dL Cholesterol/HDL Ratio (3.3-6.0) Lipase (73-393) U/L Urine Color Urine Appearance Urine pH (5.0-8.0) Ur Specific [place] (1.001-1.035) Urine Protein (NEGATIVE) mg/dL Urine Glucose (UA) (NEGATIVE) mg/dL Urine Ketones (NEGATIVE) mg/dL Urine Occult Blood (NEGATIVE) Urine Nitrite (NEGATIVE) Urine Bilirubin (NEGATIVE) Urine Ictotest Urine Urobilinogen (<2.0) EU/dL Ur Leukocyte Esterase (NEGATIVE) Urine RBC (0-2/HPF) Urine WBC (0-5/HPF) Ur Epithelial Cells (NONE-FEW) Urine Bacteria (NEGATIVE) Hyaline Casts (0-2/LPF) Urine Mucus (NONE-MOD) Ethyl Alcohol < 3.0 mg/dL 01/31/19 01/31/19 01/31/19 Range/Units 14:35 14:35 17:57 WBC (4.0-11.0) K/uL RBC (4.30-5.90) M/uL Hgb (12.0-16.0) g/dL Hct (36.0-46.0) % MCV (80.0-98.0) fL MCH (27.0-32.0) pg MCHC (31.0-37.0) g/dL RDW Std Deviation (28.0-62.0) fl RDW Coeff of Unruly (11.0-15.0) % Plt Count (150-400) K/uL MPV (7.40-12.00) fL Neut % (Auto) (48.0-80.0) % Lymph % (Auto) (16.0-40.0) % [place] % (Auto) (0.0-15.0) % Eos % (Auto) (0.0-7.0) % Baso % (Auto) (0.0-1.5) % Neut # (Auto) (1.4-5.7) K/uL Lymph # (Auto) (0.6-2.4) K/uL [place] # (Auto) (0.0-0.8) K/uL Eos # (Auto) (0.0-0.7) K/uL Baso # (Auto) (0.0-0.1) K/uL Nucleated RBC % /100WBC Nucleated RBCs # K/uL Sodium (136-145) mmol/L Potassium (3.5-5.1) mmol/L Chloride (98-107) mmol/L Carbon Dioxide (21.0-32.0) mmol/L BUN (7.0-18.0) mg/dL Creatinine (0.6-1.0) mg/dL Est Cr Clr Drug Dosing mL/min Estimated GFR (MDRD) ml/min Glucose (74-106) mg/dL Calcium (8.5-10.1) mg/dL Phosphorus 2.1 L (2.6-4.7) mg/dL Magnesium (1.8-2.4) mg/dL Total Bilirubin (0.2-1.0) mg/dL AST (15-37) IU/L ALT (14-63) IU/L Alkaline Phosphatase (46-116) U/L Troponin I (0.000-0.056) ng/mL Total Protein (6.4-8.2) g/dL Albumin (3.4-5.0) g/dL Globulin (2.6-4.0) g/dL Albumin/Globulin Ratio (0.9-1.6) Triglycerides 106 (0-200) mg/dL Cholesterol 220 H (50-200) mg/dL LDL Cholesterol, Calc 132 (60-180) mg/dL VLDL Cholesterol 21 (5-55) mg/dL HDL Cholesterol 67 H (40-60) mg/dL Cholesterol/HDL Ratio 3.3 (3.3-6.0) Lipase 456 H (73-393) U/L Urine Color YELLOW Urine Appearance CLEAR Urine pH 6.0 (5.0-8.0) Ur Specific [place] <= 1.005 (1.001-1.035) Urine Protein NEGATIVE (NEGATIVE) mg/dL Urine Glucose (UA) NEGATIVE (NEGATIVE) mg/dL Urine Ketones NEGATIVE (NEGATIVE) mg/dL Urine Occult Blood NEGATIVE (NEGATIVE) Urine Nitrite NEGATIVE (NEGATIVE) Urine Bilirubin SMALL H (NEGATIVE) Urine Ictotest NEGATIVE Urine Urobilinogen 0.2 (<2.0) EU/dL Ur Leukocyte Esterase SMALL H (NEGATIVE) Urine RBC 0-2 (0-2/HPF) Urine WBC 2-4 (0-5/HPF) Ur Epithelial Cells FEW (NONE-FEW) Urine Bacteria 1+ H (NEGATIVE) Hyaline Casts 0-1 (0-2/LPF) Urine Mucus LIGHT (NONE-MOD) Ethyl Alcohol mg/dL 01/31/19 02/01/19 02/01/19 Range/Units 23:53 06:26 06:26 WBC 5.20 (4.0-11.0) K/uL RBC 2.61 L (4.30-5.90) M/uL Hgb 8.6 L (12.0-16.0) g/dL Hct 25.9 L (36.0-46.0) % MCV 99.2 H (80.0-98.0) fL MCH 33.0 H (27.0-32.0) pg MCHC 33.2 (31.0-37.0) g/dL RDW Std Deviation 49.7 (28.0-62.0) fl RDW Coeff of Unruly 14 (11.0-15.0) % Plt Count 218 (150-400) K/uL MPV 9.10 (7.40-12.00) fL Neut % (Auto) 55.6 (48.0-80.0) % Lymph % (Auto) 35.4 (16.0-40.0) % [place] % (Auto) 6.7 (0.0-15.0) % Eos % (Auto) 1.7 (0.0-7.0) % Baso % (Auto) 0.6 (0.0-1.5) % Neut # (Auto) 2.9 (1.4-5.7) K/uL Lymph # (Auto) 1.8 (0.6-2.4) K/uL [place] # (Auto) 0.4 (0.0-0.8) K/uL Eos # (Auto) 0.1 (0.0-0.7) K/uL Baso # (Auto) 0.0 (0.0-0.1) K/uL Nucleated RBC % 0.0 /100WBC Nucleated RBCs # 0 K/uL Sodium 140 145 (136-145) mmol/L Potassium 2.9 L 3.6 (3.5-5.1) mmol/L Chloride 102 109 H (98-107) mmol/L Carbon Dioxide 27.7 26.3 (21.0-32.0) mmol/L BUN 9 7 (7.0-18.0) mg/dL Creatinine 0.8 0.8 (0.6-1.0) mg/dL Est Cr Clr Drug Dosing 79.63 79.63 mL/min Estimated GFR (MDRD) > 60.0 > 60.0 ml/min Glucose 91 89 (74-106) mg/dL Calcium 7.6 L 7.0 L (8.5-10.1) mg/dL Phosphorus 4.7 (2.6-4.7) mg/dL Magnesium 2.6 H (1.8-2.4) mg/dL Total Bilirubin 0.5 (0.2-1.0) mg/dL AST 34 (15-37) IU/L ALT 13 L (14-63) IU/L Alkaline Phosphatase 112 (46-116) U/L Troponin I (0.000-0.056) ng/mL Total Protein 4.7 L (6.4-8.2) g/dL Albumin 2.0 L (3.4-5.0) g/dL Globulin 2.7 (2.6-4.0) g/dL Albumin/Globulin Ratio 0.7 L (0.9-1.6) Triglycerides (0-200) mg/dL Cholesterol (50-200) mg/dL LDL Cholesterol, Calc (60-180) mg/dL VLDL Cholesterol (5-55) mg/dL HDL Cholesterol (40-60) mg/dL Cholesterol/HDL Ratio (3.3-6.0) Lipase (73-393) U/L Urine Color Urine Appearance Urine pH (5.0-8.0) Ur Specific [place] (1.001-1.035) Urine Protein (NEGATIVE) mg/dL Urine Glucose (UA) (NEGATIVE) mg/dL Urine Ketones (NEGATIVE) mg/dL Urine Occult Blood (NEGATIVE) Urine Nitrite (NEGATIVE) Urine Bilirubin (NEGATIVE) Urine Ictotest Urine Urobilinogen (<2.0) EU/dL Ur Leukocyte Esterase (NEGATIVE) Urine RBC (0-2/HPF) Urine WBC (0-5/HPF) Ur Epithelial Cells (NONE-FEW) Urine Bacteria (NEGATIVE) Hyaline Casts (0-2/LPF) Urine Mucus (NONE-MOD) Ethyl Alcohol mg/dL Med Orders - Current: Current Medications Folic Acid (Folic Acid) 1 mg IV DAILY [facility] Pantoprazole Sodium 40 mg/ (Sodium Chloride) 10 mls @ 300 mls/hr IV Q24H [facility] Last Admin: 01/31/19 17:43 Dose: 300 mls/hr Potassium Chloride/Sodium Chloride (Normal Saline With 20 Meq Kcl) 1,000 mls @ 175 mls/hr IV ASDIRECTED [facility] Last Admin: 02/01/19 07:36 Dose: 175 mls/hr Thiamine HCl 500 mg/ Sodium (Chloride) 105 mls @ 210 mls/hr IV Q8H [facility] Last Admin: 02/01/19 05:11 Dose: 210 mls/hr Ceftriaxone Sodium/Dextrose 1 (gm/ Premix) 50 mls @ 100 mls/hr IV Q24H [facility] Last Admin: 01/31/19 21:39 Dose: 100 mls/hr Lorazepam (Ativan) 0 mg IVPUSH Q2H PRN; Protocol PRN Reason: CIWAA Morphine Sulfate (Morphine) 2 mg IVPUSH Q2H PRN PRN Reason: Pain Ondansetron HCl (Zofran) 4 mg IVPUSH Q4H PRN PRN Reason: Nausea Sodium Chloride (Saline Flush) 10 ml FLUSH ASDIRECTED PRN PRN Reason: Keep Vein Open Last Admin: 01/31/19 14:48 Dose: 10 ml Sodium Chloride (Saline Flush) 2.5 ml FLUSH ASDIRECTED PRN PRN Reason: Keep Vein Open Last Admin: 01/31/19 14:48 Dose: 2.5 ml Discontinued Medications Aspirin (Aspirin) 325 mg PO ONETIME ONE Stop: 01/31/19 21:04 Last Admin: 01/31/19 21:39 Dose: 325 mg Calcium Gluconate (Calcium Gluconate) 1 gm IV ONETIME ONE Stop: 02/01/19 07:58 Gadobenate Dimeglumine (Multihance) 12 ml IVPUSH ONETIME STA Stop: 01/31/19 20:06 Last Admin: 01/31/19 20:06 Dose: 12 ml Sodium Chloride (Normal Saline) 1,000 mls @ 999 mls/hr IV STAT ONE Stop: 01/31/19 15:12 Last Admin: 01/31/19 15:33 Dose: Not Given Multivitamins/Minerals 10 ml/Thiamine HCl 500 mg/ Folic Acid 1 mg/ Magnesium Sulfate 1 gm/ Sodium Chloride 1,017.2 mls @ 999 mls/hr IV ASDIRECTED ONE Stop: 01/31/19 15:31 Last Admin: 01/31/19 14:46 Dose: 999 mls/hr Potassium Chloride 40 meq/ (Premix) 100 mls @ 25 mls/hr IV ONETIME ONE Stop: 01/31/19 19:28 Last Admin: 01/31/19 15:50 Dose: 25 mls/hr Sodium Chloride (Normal Saline) 1,000 mls @ 150 mls/hr IV ASDIRECTED [facility] Last Admin: 01/31/19 15:51 Dose: 150 mls/hr Magnesium Sulfate 4 gm/ Premix 100 mls @ 50 mls/hr IV ONETIME ONE Stop: 01/31/19 18:07 Last Admin: 01/31/19 18:27 Dose: 50 mls/hr Sodium Chloride (Normal Saline) 1,000 mls @ 175 mls/hr IV ASDIRECTED [facility] Potassium Phosphate 30 mmole/ (Sodium Chloride) 510 mls @ 75 mls/hr IV ONETIME ONE Stop: 01/31/19 23:38 Last Admin: 02/01/19 02:13 Dose: Not Given Potassium Phosphate 30 mmole/ (Sodium Chloride) 510 mls @ 75 mls/hr IV ONETIME ONE Stop: 02/01/19 02:17 Last Admin: 01/31/19 21:49 Dose: 75 mls/hr Potassium Chloride (Klor-Con M20) 20 meq PO ONETIME ONE Stop: 02/01/19 00:55 Last Admin: 02/01/19 01:05 Dose: 20 meq - Exam General: Alert, Oriented, Cooperative, No Acute Distress Neck: Supple Lungs: Clear to Auscultation, Normal Respiratory Effort Cardiovascular: Regular Rate, Regular Rhythm GI/Abdominal Exam: Normal Bowel Sounds, Soft, Tender (mild tenderness to epigastric region.) Back Exam: Normal Inspection, Full Range of Motion Extremities: Normal Inspection, Normal Range of Motion, Non-Tender, No Pedal Edema Neurological: No: Normal Gait (Significant ataxia noted.) Psy/Mental Status: Alert, Normal Affect, Normal Mood - Problem List & Annotations (1) CVA (cerebral vascular accident) SNOMED Code(s): 559693054 Code(s): I63.9 - CEREBRAL INFARCTION, UNSPECIFIED Status: Acute Current Visit: Yes (2) Wernicke encephalopathy SNOMED Code(s): 14194856 Code(s): E51.2 - WERNICKE'S ENCEPHALOPATHY Status: Suspected Current Visit: Yes (3) Hypomagnesemia SNOMED Code(s): 630689554 Code(s): E83.42 - HYPOMAGNESEMIA Status: Acute Current Visit: Yes (4) Hypophosphatemia SNOMED Code(s): 3986117 Code(s): E83.39 - OTHER DISORDERS OF PHOSPHORUS METABOLISM Status: Acute Current Visit: Yes (5) UTI (urinary tract infection) SNOMED Code(s): 48042408 Code(s): N39.0 - URINARY TRACT INFECTION, SITE NOT SPECIFIED Status: Acute Current Visit: Yes (6) Blurred vision SNOMED Code(s): 813538795 Code(s): H53.8 - OTHER VISUAL DISTURBANCES Status: Acute Current Visit: Yes (7) Pancreatitis SNOMED Code(s): 11101056 Code(s): K85.90 - ACUTE PANCREATITIS WITHOUT NECROSIS OR INFECTION, UNSP Status: Acute Current Visit: Yes Qualifiers: Pancreatitis type: alcohol induced (8) Hypokalemia SNOMED Code(s): 54064409 Code(s): E87.6 - HYPOKALEMIA Status: Acute Current Visit: Yes (9) Alcohol abuse SNOMED Code(s): 54828936 Code(s): F10.10 - ALCOHOL ABUSE, UNCOMPLICATED Status: Chronic Current Visit: Yes (10) HTN (hypertension) SNOMED Code(s): 93804030 Code(s): I10 - ESSENTIAL (PRIMARY) HYPERTENSION Status: Chronic Current Visit: Yes Qualifiers: Hypertension type: essential hypertension Qualified Code(s): I10 - Essential (primary) hypertension - Problem List Review Problem List Initiated/Reviewed/Updated: Yes - My Orders Last 24 Hours: My Active Orders 01/31/19 16:07 Patient Status [ADT] Stat 01/31/19 16:08 Telemetry Monitoring [Cardiac Monitoring] [RC] Q8H 01/31/19 16:25 Resuscitation Status Stat 01/31/19 16:30 Pantoprazole [ProTONIX IV] 40 mg Sodium Chloride 0.9% [Normal Saline] 10 ml IV Q24H 01/31/19 16:52 Height and Weight [RC] DAILY Intake and Output [RC] Q12H Oxygen Therapy [RC] PRN VTE/DVT Education [RC] PER UNIT ROUTINE Vital Signs [RC] Q4H Ondansetron [Zofran] 4 mg IVPUSH Q4H PRN 01/31/19 17:02 CIWAA Assessment [RC] Q4H LORazepam [Ativan] See Protocol IVPUSH Q2H PRN 01/31/19 17:07 Morphine 2 mg IVPUSH Q2H PRN 01/31/19 17:30 NS + KCl 20mEq/L [Normal Saline with 20 mEq KCl] 1,000 ml IV ASDIRECTED 01/31/19 17:57 CULTURE URINE [RM] Routine 01/31/19 20:00 [id number] [Rocephin in Dextrose,Iso-Osm 1 GM/50 ML] 1 gm Premix Bag 1 bag IV Q24H 01/31/19 22:00 Thiamine [Vitamin B-1] 500 mg Sodium Chloride 0.9% [Normal Saline] 100 ml IV Q8H 01/31/19 Dinner NPO [Nothing Per Oral Diet] [DIET] 02/01/19 06:26 GLYCOSYLATED HEMOGLOBIN,HGBA1C [CHEM] Routine 02/01/19 07:59 CV Carotid Duplex Comp [US] Routine Echo Comp wo Cont [US] Routine 02/01/19 09:00 Folic Acid 1 mg IV DAILY 02/01/19 17:06 Abdomen Comp [US] Routine 02/02/19 05:11 CBC WITH AUTO DIFF [HEME] AM COMPREHENSIVE METABOLIC PN,CMP [CHEM] AM MAGNESIUM [CHEM] AM PHOSPHORUS [CHEM] AM 02/03/19 05:11 CBC WITH AUTO DIFF [HEME] AM COMPREHENSIVE METABOLIC PN,CMP [CHEM] AM MAGNESIUM [CHEM] AM PHOSPHORUS [CHEM] AM - Plan Plan:: This 48 year old female admitted with alcohol withdrawal suspected Wernicke's encephalopathy and several electrolyte abnormalities 1. Alcohol withdrawal: Monitor CIWAA, Ativan PRN for CIWAA. Seizure precautions. Provide support for sobriety. 2. Wernicke's Encephalopathy: MRI of brain reveals some diffusion restriction, spoke with neurology, Dr Rodriguez, she evaluated MRI, does not feel this shows acute infarction. Recommended treatment for Wernicke's based on symptoms. Continue Thiamine 500 mg TID for 2 days, folic acid as well. Follow up with Neurology. 3. Electrolyte abnormalities: Potassium, magnesium improved. Continue to monitor. Monitor phosphate daily. Monitor on telemetry. 4. Pancreatitis: US abdomen pending. Likely more chronic pancreatitis. Lipid panel ok. CT reveals no acute inflammation of pancreas. Will decrease IVFs and monitor how she tolerates CL diet. 5. UTI: US reveals + bacteria with pyuria. Continue Rocephin. UC pending. 6. PUD: hx of gastric ulcers. Takes Rolaids at home. Continue Protonix and monitor. Denies black of bloody stools. Hgb did drop today, along with all cell lines, likely dilution. Monitor for bleeding. 7. HTN: BP 80-100 SBP. Mild dizziness. Monitor, continue fluids. VTE prophylaxis: SCDs due to risk of bleeding secondary to alcohol abuse and PUD Dispo: 2-3 days pending improvement.
[2019-02-01 08:22] LABS: HEMOGLOBIN A1C 5.6 % (4.5-6.2)
[2019-02-01] MEDS: Folic Acid 50 MG/10 ML MDV IV SCH (09:02)
--- NOTE | 2019-02-01 12:32 | US ---
Abdominal ultrasound: Multiple real-time images were obtained transabdominally. Comparison: No prior abdominal ultrasound, previous CT abdomen and pelvis exam performed on 01/31/19. Findings: Liver is echogenic compatible with fatty infiltration. Spleen size is normal. Aorta shows no aneurysm. Kidney show no hydronephrosis or mass. Right kidney length is 10.6 cm and left kidney length is 11.2 cm. Gallbladder contains no shadowing gallstones. Gallbladder is not well distended. No gallbladder wall thickening or biliary duct dilatation is seen. Visualized portions of the pancreas are within normal limits. Impression: 1. Poorly distended gallbladder. No definite shadowing gallstones, gallbladder wall thickening or biliary duct dilatation is seen. 2. Fatty infiltration within the liver. 3. Abdominal ultrasound study is otherwise unremarkable. Diagnostic code #2 MTDD
[2019-02-01] MEDS: Pantoprazole 40 MG in Sodium Chloride 0.9% 10 ML IV SCH (17:48)
[2019-02-01] MEDS: cefTRIAXone 1 GM in Premix Bag 1 BAG IV SCH (19:57)
[2019-02-01] MEDS ORDERED: Acetaminophen 325 MG Tab PO SCH (23:45)
[2019-02-02] MEDS: NS + KCl 20mEq/L 1,000 ML IV SCH (02:19)
[2019-02-02] MEDS ORDERED: Acetaminophen 325 MG Tab PO PRN (05:42)
[2019-02-02] MEDS: Thiamine 500 MG in Sodium Chloride 0.9% 100 ML IV SCH ×3 (05:48→21:56)
[2019-02-02 06:47] LABS: BLOOD UREA NITROGEN,BUN 4 mg/dL (7.0-18.0); CARBON DIOXIDE,CO2 22.1 mmol/L (21.0-32.0); CHLORIDE,CL 111 mmol/L (98-107); GLUCOSE RANDOM 86 mg/dL (74-106); POTASSIUM,K 3.2 mmol/L (3.5-5.1); SODIUM,NA 145 mmol/L (136-145)
[2019-02-02] MEDS ORDERED: Potassium Chloride 20 MEQ Tab.ER PO ONE (08:03)
[2019-02-02] MEDS ORDERED: Magnesium Sulfate/Water 4 GM in Premix Bag 1 BAG IV ONE (08:04)
[2019-02-02] MEDS: Folic Acid 50 MG/10 ML MDV IV SCH (08:40)
[2019-02-02] MEDS: Phosphorus #1 250 MG Tab PO SCH ×4 (08:40→23:59)
--- NOTE | 2019-02-02 09:20 | PCM.PN ---
- General Info Date of Service: 02/02/19 Admission Dx/Problem (Free Text): Admission Diagnosis/Problem Admission Diagnosis/Problem Alcohol withdrawal syndrome Subjective Update: Feeling improved today. Symptoms continue to improve with Thiamine administration. Vision much better. Gait instability improving. She reports she is up with IV pole at times. Adamantly refuses walker. Functional Status: Reports: Pain Controlled, Tolerating Diet, Ambulating, Urinating - Review of Systems General: Reports: No Symptoms. Denies: Weakness, Fatigue HEENT: Reports: Visual Changes (nearly to baseline). Denies: Headaches, Sore Throat Pulmonary: Reports: No Symptoms. Denies: Shortness of Breath Cardiovascular: Reports: No Symptoms. Denies: Chest Pain Gastrointestinal: Reports: No Symptoms. Denies: Abdominal Pain, Nausea, Vomiting Genitourinary: Reports: No Symptoms. Denies: Dysuria, Frequency, Burning Musculoskeletal: Reports: No Symptoms Skin: Reports: No Symptoms Neurological: Reports: No Symptoms Psychiatric: Reports: No Symptoms - Patient Data Vitals - Most Recent: Last Vital Signs Temp 97.2 F 02/02/19 07:19 Pulse 78 02/02/19 07:19 Resp 18 02/02/19 07:19 BP 99/62 02/02/19 07:19 Pulse Ox 96 02/02/19 07:19 Weight - Most Recent: 71.3 kg I&O - Last 24 Hours: Intake & Output 02/01/19 02/02/19 02/02/19 22:59 06:59 14:59 Intake Total 255 1420 100 Output Total 480 Balance 255 940 100 Lab Results Last 24 Hours: Laboratory Results - last 24 hr 02/02/19 02/02/19 Range/Units 06:08 06:08 WBC 4.28 (4.0-11.0) K/uL RBC 2.67 L (4.30-5.90) M/uL Hgb 8.7 L (12.0-16.0) g/dL Hct 26.9 L (36.0-46.0) % MCV 100.7 H (80.0-98.0) fL MCH 32.6 H (27.0-32.0) pg MCHC 32.3 (31.0-37.0) g/dL RDW Std Deviation 51.7 (28.0-62.0) fl RDW Coeff of Unruly 14 (11.0-15.0) % Plt Count 226 (150-400) K/uL MPV 9.40 (7.40-12.00) fL Neut % (Auto) 41.6 L (48.0-80.0) % Lymph % (Auto) 45.6 H (16.0-40.0) % [place] % (Auto) 9.6 (0.0-15.0) % Eos % (Auto) 3.0 (0.0-7.0) % Baso % (Auto) 0.2 (0.0-1.5) % Neut # (Auto) 1.8 (1.4-5.7) K/uL Lymph # (Auto) 2.0 (0.6-2.4) K/uL [place] # (Auto) 0.4 (0.0-0.8) K/uL Eos # (Auto) 0.1 (0.0-0.7) K/uL Baso # (Auto) 0.0 (0.0-0.1) K/uL Nucleated RBC % 0.0 /100WBC Nucleated RBCs # 0 K/uL Sodium 145 (136-145) mmol/L Potassium 3.2 L (3.5-5.1) mmol/L Chloride 111 H (98-107) mmol/L Carbon Dioxide 22.1 (21.0-32.0) mmol/L BUN 4 L (7.0-18.0) mg/dL Creatinine 0.7 (0.6-1.0) mg/dL Est Cr Clr Drug Dosing 91.01 mL/min Estimated GFR (MDRD) > 60.0 ml/min Glucose 86 (74-106) mg/dL Calcium 6.9 L (8.5-10.1) mg/dL Phosphorus 3.1 (2.6-4.7) mg/dL Magnesium 1.5 L (1.8-2.4) mg/dL Total Bilirubin 0.4 (0.2-1.0) mg/dL AST 31 (15-37) IU/L ALT 18 (14-63) IU/L Alkaline Phosphatase 108 (46-116) U/L Total Protein 4.7 L (6.4-8.2) g/dL Albumin 2.0 L (3.4-5.0) g/dL Globulin 2.7 (2.6-4.0) g/dL Albumin/Globulin Ratio 0.7 L (0.9-1.6) Joel Results Last 24 Hours: Microbiology 01/31/19 17:57 Urine Culture - Final Urine, Clean Catch MIXED KVNG >100,000 CFU/ML Med Orders - Current: Current Medications Acetaminophen (Tylenol) 325 mg PO DAILY PRN PRN Reason: Pain Folic Acid (Folic Acid) 1 mg IV DAILY [facility] Last Admin: 02/02/19 08:40 Dose: 1 mg Pantoprazole Sodium 40 mg/ (Sodium Chloride) 10 mls @ 300 mls/hr IV Q24H [facility] Last Admin: 02/01/19 17:48 Dose: 300 mls/hr Thiamine HCl 500 mg/ Sodium (Chloride) 105 mls @ 210 mls/hr IV Q8H [facility] Last Admin: 02/02/19 05:48 Dose: 210 mls/hr Ceftriaxone Sodium/Dextrose 1 (gm/ Premix) 50 mls @ 100 mls/hr IV Q24H [facility] Last Admin: 02/01/19 19:57 Dose: 100 mls/hr Potassium Chloride/Sodium Chloride (Normal Saline With 20 Meq Kcl) 1,000 mls @ 100 mls/hr IV ASDIRECTED [facility] Last Admin: 02/02/19 02:19 Dose: 100 mls/hr Magnesium Sulfate 4 gm/ Premix 100 mls @ 50 mls/hr IV ONETIME ONE Stop: 02/02/19 10:03 Last Admin: 02/02/19 08:41 Dose: 50 mls/hr Lorazepam (Ativan) 0 mg IVPUSH Q2H PRN; Protocol PRN Reason: CIWAA Ondansetron HCl (Zofran) 4 mg IVPUSH Q4H PRN PRN Reason: Nausea Sodium Chloride (Saline Flush) 10 ml FLUSH ASDIRECTED PRN PRN Reason: Keep Vein Open Last Admin: 01/31/19 14:48 Dose: 10 ml Sodium Chloride (Saline Flush) 2.5 ml FLUSH ASDIRECTED PRN PRN Reason: Keep Vein Open Last Admin: 01/31/19 14:48 Dose: 2.5 ml Sodium Phosphate (Neutra-Phos) 250 mg PO QID [facility] Last Admin: 02/02/19 08:40 Dose: 250 mg Discontinued Medications Acetaminophen (Tylenol) 325 mg PO DAILY [facility] Last Admin: 02/01/19 23:52 Dose: 325 mg Aspirin (Aspirin) 325 mg PO ONETIME ONE Stop: 01/31/19 21:04 Last Admin: 01/31/19 21:39 Dose: 325 mg Calcium Gluconate (Calcium Gluconate) 1 gm IV ONETIME ONE Stop: 02/01/19 07:58 Last Admin: 02/01/19 09:54 Dose: Not Given Gadobenate Dimeglumine (Multihance) 12 ml IVPUSH ONETIME STA Stop: 01/31/19 20:06 Last Admin: 01/31/19 20:06 Dose: 12 ml Sodium Chloride (Normal Saline) 1,000 mls @ 999 mls/hr IV STAT ONE Stop: 01/31/19 15:12 Last Admin: 01/31/19 15:33 Dose: Not Given Multivitamins/Minerals 10 ml/Thiamine HCl 500 mg/ Folic Acid 1 mg/ Magnesium Sulfate 1 gm/ Sodium Chloride 1,017.2 mls @ 999 mls/hr IV ASDIRECTED ONE Stop: 01/31/19 15:31 Last Admin: 01/31/19 14:46 Dose: 999 mls/hr Potassium Chloride 40 meq/ (Premix) 100 mls @ 25 mls/hr IV ONETIME ONE Stop: 01/31/19 19:28 Last Admin: 01/31/19 15:50 Dose: 25 mls/hr Sodium Chloride (Normal Saline) 1,000 mls @ 150 mls/hr IV ASDIRECTED [facility] Last Admin: 01/31/19 15:51 Dose: 150 mls/hr Magnesium Sulfate 4 gm/ Premix 100 mls @ 50 mls/hr IV ONETIME ONE Stop: 01/31/19 18:07 Last Admin: 01/31/19 18:27 Dose: 50 mls/hr Sodium Chloride (Normal Saline) 1,000 mls @ 175 mls/hr IV ASDIRECTED [facility] Potassium Phosphate 30 mmole/ (Sodium Chloride) 510 mls @ 75 mls/hr IV ONETIME ONE Stop: 01/31/19 23:38 Last Admin: 02/01/19 02:13 Dose: Not Given Potassium Chloride/Sodium Chloride (Normal Saline With 20 Meq Kcl) 1,000 mls @ 175 mls/hr IV ASDIRECTED [facility] Last Admin: 02/01/19 07:36 Dose: 175 mls/hr Potassium Phosphate 30 mmole/ (Sodium Chloride) 510 mls @ 75 mls/hr IV ONETIME ONE Stop: 02/01/19 02:17 Last Admin: 01/31/19 21:49 Dose: 75 mls/hr Calcium Gluconate 1 gm/ Sodium (Chloride) 60 mls @ 120 mls/hr IV 02/01/19@1000 [facility] Stop: 02/01/19 10:29 Last Admin: 02/01/19 10:06 Dose: 120 mls/hr Morphine Sulfate (Morphine) 2 mg IVPUSH Q2H PRN PRN Reason: Pain Potassium Chloride (Klor-Con M20) 20 meq PO ONETIME ONE Stop: 02/01/19 00:55 Last Admin: 02/01/19 01:05 Dose: 20 meq Potassium Chloride (Klor-Con M20) 40 meq PO ONETIME ONE Stop: 02/02/19 08:04 Last Admin: 02/02/19 08:40 Dose: 40 meq - Exam General: Alert, Oriented, Cooperative, No Acute Distress Cardiovascular: Regular Rate, Regular Rhythm GI/Abdominal Exam: Normal Bowel Sounds, Soft, Non-Tender Extremities: Normal Inspection, Normal Range of Motion, Non-Tender, No Pedal Edema Wound/Incisions: No: Erythema Neurological: No New Focal Deficit Psy/Mental Status: Alert, Normal Affect, Anxious, Withdrawal Symptoms (mild tremors nored) - Problem List & Annotations (1) Wernicke encephalopathy SNOMED Code(s): 43969755 Code(s): E51.2 - WERNICKE'S ENCEPHALOPATHY Status: Acute Current Visit: Yes (2) Hypomagnesemia SNOMED Code(s): 957733334 Code(s): E83.42 - HYPOMAGNESEMIA Status: Acute Current Visit: Yes (3) Hypophosphatemia SNOMED Code(s): 7985259 Code(s): E83.39 - OTHER DISORDERS OF PHOSPHORUS METABOLISM Status: Acute Current Visit: Yes (4) UTI (urinary tract infection) SNOMED Code(s): 32691293 Code(s): N39.0 - URINARY TRACT INFECTION, SITE NOT SPECIFIED Status: Acute Current Visit: Yes (5) Blurred vision SNOMED Code(s): 591903272 Code(s): H53.8 - OTHER VISUAL DISTURBANCES Status: Acute Current Visit: Yes (6) Pancreatitis SNOMED Code(s): 52072809 Code(s): K85.90 - ACUTE PANCREATITIS WITHOUT NECROSIS OR INFECTION, UNSP Status: Acute Current Visit: Yes Qualifiers: Pancreatitis type: alcohol induced (7) Hypokalemia SNOMED Code(s): 93292583 Code(s): E87.6 - HYPOKALEMIA Status: Acute Current Visit: Yes (8) Alcohol abuse SNOMED Code(s): 25816021 Code(s): F10.10 - ALCOHOL ABUSE, UNCOMPLICATED Status: Chronic Current Visit: Yes (9) HTN (hypertension) SNOMED Code(s): 14306371 Code(s): I10 - ESSENTIAL (PRIMARY) HYPERTENSION Status: Chronic Current Visit: Yes Qualifiers: Hypertension type: essential hypertension Qualified Code(s): I10 - Essential (primary) hypertension - Problem List Review Problem List Initiated/Reviewed/Updated: Yes - My Orders Last 24 Hours: My Active Orders 02/01/19 09:00 Folic Acid 1 mg IV DAILY 02/01/19 11:11 NS + KCl 20mEq/L [Normal Saline with 20 mEq KCl] 1,000 ml IV ASDIRECTED 02/02/19 08:04 Magnesium Sulfate/Water [Magnesium Sulfate in Water Premix] 4 gm Premix Bag 1 bag IV ONETIME 02/02/19 08:15 Phosphorus #1 [Neutra-Phos] 250 mg PO QID 02/02/19 Breakfast Soft Diet [DIET] 02/03/19 05:11 CBC WITH AUTO DIFF [HEME] AM COMPREHENSIVE METABOLIC PN,CMP [CHEM] AM MAGNESIUM [CHEM] AM PHOSPHORUS [CHEM] AM - Plan Plan:: This 48 year old female admitted with alcohol withdrawal suspected Wernicke's encephalopathy and several electrolyte abnormalities 1. Alcohol withdrawal: Monitor CIWAA, Ativan PRN for CIWAA. Seizure precautions. Provide support for sobriety. 2. Wernicke's Encephalopathy: Continue Thiamine 500 mg TID today. Then switch to 250 mg daily IV for 5 days. Then will transition to 100 mg po daily along with Folic acid and multivitamin. 3. Electrolyte abnormalities: Replace Potassium, Phosphate and magnesium. Continue to monitor. Monitor on telemetry. 4. Pancreatitis: Likely chronic. Pain is scant. No nausea or vomiting. Advance diet to soft. Stop IVFs. 5. UTI: US reveals + bacteria with pyuria. Continue Rocephin. UC mixed kvng, continue Rocephin for 3 days total. 6. PUD: Continue Protonix and monitor. Obtain iron studies. 7. HTN: BP stable. Monitor. Up ambulating per self. VTE prophylaxis: SCDs due to risk of bleeding secondary to alcohol abuse and PUD Dispo: 2-3 days pending improvement.
[2019-02-02] MEDS ORDERED: Iron Sucrose Complex 100 MG in Sodium Chloride 0.9% 100 ML IV SCH (12:00)
[2019-02-02] MEDS: Pantoprazole 40 MG in Sodium Chloride 0.9% 10 ML IV SCH (16:34)
[2019-02-02] MEDS: cefTRIAXone 1 GM in Premix Bag 1 BAG IV SCH (19:11)
[2019-02-03] MEDS: Thiamine 500 MG in Sodium Chloride 0.9% 100 ML IV SCH (05:43)
[2019-02-03] MEDS: Phosphorus #1 250 MG Tab PO SCH (05:44)
[2019-02-03 05:52] LABS: BLOOD UREA NITROGEN,BUN 1 mg/dL (7.0-18.0); CARBON DIOXIDE,CO2 23.8 mmol/L (21.0-32.0); CHLORIDE,CL 111 mmol/L (98-107); GLUCOSE RANDOM 91 mg/dL (74-106); POTASSIUM,K 3.2 mmol/L (3.5-5.1); SODIUM,NA 146 mmol/L (136-145)
[2019-02-03] MEDS ORDERED: Potassium Chloride 20 MEQ Tab.ER PO ONE (07:54)
[2019-02-03] MEDS ORDERED: Magnesium Sulfate/Water 2 GM in Premix Bag 1 BAG IV ONE (07:54)
[2019-02-03 08:06] VITALS: BP 116/82; PULSE 99
[2019-02-03] MEDS: Folic Acid 50 MG/10 ML MDV IV SCH (08:06)
[2019-02-03] MEDS ORDERED: Acetaminophen 325 MG Tab PO PRN (08:51)
[2019-02-03] MEDS ORDERED: Iron Sucrose Complex 100 MG in Sodium Chloride 0.9% 100 ML IV SCH (09:00)
--- NOTE | 2019-02-03 10:15 | PCM.DCSUM1 ---
Discharge Summary - Hospital Course Brief History: This 48 year old female with pmh of GERD with ulcers, alcohol abuse presented initially to Dr [facility] clinic with concerns of vision problems. He fully evaluated her but was concerned about Wernicke's encephalopathy and urged her to go to the ED. She reports she has had worsening visual concerns along with ataxia at home. She reports she is unable to ambulate without holding onto things. From review of record, she had a fall hitting her head in September, she has had headaches and post concussive symptoms with ataxia. She has been followed by PCP, Dr Fernandez. She reports the vision worsened, which prompted her to see Dr Maria today. She reports she has not been able to eat or drink much recently, but drinking her 2-3 drinks of Diet coke and Whiskey each night. She reports she does get shaky when she doesn't have alcohol no seizure history with alcohol withdrawal. She doesn't appear to be forthcoming with amount of alcohol usage. She chews 2 tins of tobacco per week and no recreational drug use. In the ED, CBC WNL, platelets 347,000. She was noted to have hypokalemia, 2.3, chloride 88, BUN 10, Cr 1.4, phosphorus 2.1 , Magnesium 1.3 Bilirubin 1.4, AST45, ALT 23, Alk phos 145. [id number]. Lipase noted to be 456. Head CT negative. CXR negative. She was treated with MVI bag with folic acid and 500 mg Thiamine. She was admitted secondary to alcohol withdrawal suspected Wernicke's encephalopathy, and pancreatitis. Diagnosis: Stroke: No - Discharge Data Discharge Date: 02/03/19 Discharge Disposition: Home, Self-Care 01 Condition: Stable - Referral to Home Health Primary Care Physician: PCP Unknown - Discharge Diagnosis/Problem(s) (1) Wernicke encephalopathy SNOMED Code(s): 93514869 ICD Code: E51.2 - WERNICKE'S ENCEPHALOPATHY Status: Acute (2) Hypomagnesemia SNOMED Code(s): 312392104 ICD Code: E83.42 - HYPOMAGNESEMIA Status: Acute (3) Hypophosphatemia SNOMED Code(s): 8413965 ICD Code: E83.39 - OTHER DISORDERS OF PHOSPHORUS METABOLISM Status: Acute (4) UTI (urinary tract infection) SNOMED Code(s): 73462334 ICD Code: N39.0 - URINARY TRACT INFECTION, SITE NOT SPECIFIED Status: Acute (5) Blurred vision SNOMED Code(s): 826394710 ICD Code: H53.8 - OTHER VISUAL DISTURBANCES Status: Acute (6) Pancreatitis SNOMED Code(s): 14826666 ICD Code: K85.90 - ACUTE PANCREATITIS WITHOUT NECROSIS OR INFECTION, UNSP Status: Acute Qualifiers: Pancreatitis type: alcohol induced (7) Hypokalemia SNOMED Code(s): 32596400 ICD Code: E87.6 - HYPOKALEMIA Status: Acute (8) Alcohol abuse SNOMED Code(s): 53321517 ICD Code: F10.10 - ALCOHOL ABUSE, UNCOMPLICATED Status: Chronic (9) HTN (hypertension) SNOMED Code(s): 96188771 ICD Code: I10 - ESSENTIAL (PRIMARY) HYPERTENSION Status: Chronic Qualifiers: Hypertension type: essential hypertension Qualified Code(s): I10 - Essential (primary) hypertension (10) Ataxia SNOMED Code(s): 95389333 ICD Code: R27.0 - ATAXIA, UNSPECIFIED Status: Acute - Patient Summary/Data Consults: Consultations 02/01/19 08:15 Consult to Occupational Therapy [OT Evaluation and Treatment] [CONS] Routine PT Evaluation and Treatment [CONS] Routine - Patient Instructions Diet: Heart Healthy Diet Activity: As Tolerated Driving: Do Not Drive Showering/Bathing: May Shower Notify Provider of: Fever, Increased Pain, Swelling and Redness, Drainage, Nausea and/or Vomiting Other/Special Instructions: Outpaient Physcial therapy referral. - Discharge Plan *PRESCRIPTION DRUG MONITORING PROGRAM REVIEWED*: Not Applicable *COPY OF PRESCRIPTION DRUG MONITORING REPORT IN PATIENT SCOTTIE: Not Applicable Prescriptions/Med Rec: Folic Acid 1 mg PO BEDTIME #30 tab Iron Ps Cmplx/Vit B12/Fa [Poly-Iron 150 Forte] 1 each PO DAILY #30 capsule Multivitamin [Daily Multiple Vitamin] 1 each PO DAILY #30 tablet Thiamine [Vitamin B-1] 100 mg PO BEDTIME #30 tab Thiamine [Vitamin B-1] 250 mg IM DAILY #4 mdv Home Medications: Home Meds Folic Acid 1 mg PO BEDTIME #30 tab 02/03/19 [Rx] Iron Ps Cmplx/Vit B12/Fa [Poly-Iron 150 Forte] 1 each PO DAILY #30 capsule 02/03 [Rx] Multivitamin [Daily Multiple Vitamin] 1 each PO DAILY #30 tablet 02/03/19 [Rx] Thiamine [Vitamin B-1] 100 mg PO BEDTIME #30 tab 02/03/19 [Rx] Thiamine [Vitamin B-1] 250 mg IM DAILY #4 mdv 02/03/19 [Rx] Oxygen Therapy Mode: Room Air Patient Handouts: Alcohol Use Disorder, Fall Prevention in the Home, Adult, [id number], Polysaccharide-Iron Complex tablets or capsules, Wernicke- Korsakoff Syndrome, Thiamine, Vitamin B1 tablets, Multivitamin with Minerals and Iron formulations (oral solid dosage forms), Ataxia, Smokeless Tobacco Information, Adult, Thiamine, Vitamin B1 injection Referrals: Michele Maria [Ordering Only Provider] - 03/07/19 8:30 am (The nurse should be calling you to try to fit you in early. If you do not hear from them by next week, call the office to try to get in sooner. Bring a photo ID and insuance card. Arrive 15 minutes early, or they will not be able to see you. ) Ysabel Stoner,[facility] [Ordering Only Provider] - 02/18/19 10:00 am Wai Fernandez MD [Physician] - 02/18/19 10:00 am Carmela Rodriguez MD [Physician] - 02/11/19 2:30 pm - Discharge Summary/Plan Comment DC Time >30 min.: Yes Discharge Summary/Plan Comment: Admitting Diagnoses: Blurred vision Ataxia Alcohol withdrawal Hypokalemia Hypomagnesemia Hypophosphatemia UTI Discharge Diagnoses: Wernicke's Encephalopathy Alcohol withdrawal Hypokalemia Hypomagnesemia Hypophosphatemia Anemia of chronic disease Other PMH: Alcohol abuse Chew tobacco use MARTIN Hou was admitted secondary to concerns for Wernicke's encephalopathy. MRI was obtained of brain due to visual concerns and ataxia. This MRI was evaluated BY Dr Rodriguez, Neurology, who felt like it was otherwise normal. No concerns for acute infarction. She was continued on high dose Thiamine treatment, 500 mg TID IV for 2 days. After 24 hours significant improvement in vision and ambulation was noted. After 2 days she was nearly back to normal. She was evaluated by PT who recommended walker at home, which she adamantly declined. She continues to improve. She is up ambulating with stand by assist. She had many electrolyte abnormalities on admission, including hypokalemia, hypomagnesemia, and hypophosphatemia. These all were replaced. Noted to have UTI , treated x 3 days with Rocephin, UC returned mixed kvng. She was highly encouraged to stop drinking alcohol as these symptoms will only return and worsen. We will provide her with community resources for this, which she declined and declined inpatient treatment. She was also encouraged to quit chewing tobacco as well. She was discharged home today. She will continue Thiamine 250 mg IM daily for 4 more days, then continue taking 100 mg daily by mouth at home along with Folic acid, multivitamin and iron. VS stable. She is to return to ED or clinic if concerns should arise. She is to follow up with PCP , Dr Fernandez, who is aware of discharge plan. Dr Maria, Ophthalmology and Dr Rodriguez, neurology. - General Info Date of Service: 02/03/19 Admission Dx/Problem (Free Text: Admission Diagnosis/Problem Admission Diagnosis/Problem Alcohol withdrawal syndrome Subjective Update: Doing well this morning, very eager for discharge home today. No complaints Vision is nearly back to normal. Gait is much improved. She is up per self in room. reports mild pain to feet intermittently. No chest pain or SOB> - Review of Systems General: Reports: No Symptoms. Denies: Weakness, Fatigue HEENT: Reports: No Symptoms. Denies: Headaches, Sore Throat, Visual Changes Pulmonary: Reports: No Symptoms. Denies: Shortness of Breath Cardiovascular: Reports: No Symptoms. Denies: Chest Pain Gastrointestinal: Reports: No Symptoms. Denies: Abdominal Pain, Nausea, Vomiting Musculoskeletal: Reports: No Symptoms Skin: Reports: No Symptoms Neurological: Reports: Tremors (very mild), Gait Disturbance (improving) Psychiatric: Denies: Hallucinations - Patient Data Vitals - Most Recent: Last Vital Signs Temp 96.9 F 02/03/19 08:04 Pulse 99 02/03/19 08:04 Resp 16 02/03/19 08:04 BP 116/82 02/03/19 08:04 Pulse Ox 99 02/03/19 08:04 Weight - Most Recent: 73.119 kg I&O - Last 24 hours: Intake & Output 02/02/19 02/03/19 02/03/19 22:59 06:59 14:59 Intake Total 995 770 Output Total 350 2050 Balance 645 -1280 Lab Results - Last 24 hrs: Laboratory Results - last 24 hr 02/02/19 02/02/19 02/02/19 Range/Units 06:08 06:08 06:08 WBC (4.0-11.0) K/uL RBC 2.62 L (4.30-5.90) M/uL Hgb (12.0-16.0) g/dL Hct (36.0-46.0) % MCV (80.0-98.0) fL MCH (27.0-32.0) pg MCHC (31.0-37.0) g/dL RDW Std Deviation (28.0-62.0) fl RDW Coeff of Unruly (11.0-15.0) % Plt Count (150-400) K/uL MPV (7.40-12.00) fL Neut % (Auto) (48.0-80.0) % Lymph % (Auto) (16.0-40.0) % [place] % (Auto) (0.0-15.0) % Eos % (Auto) (0.0-7.0) % Baso % (Auto) (0.0-1.5) % Neut # (Auto) (1.4-5.7) K/uL Lymph # (Auto) (0.6-2.4) K/uL [place] # (Auto) (0.0-0.8) K/uL Eos # (Auto) (0.0-0.7) K/uL Baso # (Auto) (0.0-0.1) K/uL Nucleated RBC % /100WBC Nucleated RBCs # K/uL Absolute Retic 23.10 (20-80) K/uL Percent Retic 0.9 (0.5-1.5) % Immature Retic Fraction 19 % Sodium (136-145) mmol/L Potassium (3.5-5.1) mmol/L Chloride (98-107) mmol/L Carbon Dioxide (21.0-32.0) mmol/L BUN (7.0-18.0) mg/dL Creatinine (0.6-1.0) mg/dL Est Cr Clr Drug Dosing mL/min Estimated GFR (MDRD) ml/min Glucose (74-106) mg/dL Calcium (8.5-10.1) mg/dL Phosphorus (2.6-4.7) mg/dL Magnesium (1.8-2.4) mg/dL Iron 24 L (50-175) ug/dL TIBC 137 L (250-450) ug/dL % Saturation 17.52 L (20-55) % Transferrin 96 L (200-400) ug/dL Ferritin 183 (8-252) ng/mL Total Bilirubin (0.2-1.0) mg/dL AST (15-37) IU/L ALT (14-63) IU/L Alkaline Phosphatase (46-116) U/L Total Protein (6.4-8.2) g/dL Albumin (3.4-5.0) g/dL Globulin (2.6-4.0) g/dL Albumin/Globulin Ratio (0.9-1.6) Vitamin B12 726 (193-986) pg/mL Folate 16.30 (8.60-58.90) ng/mL 02/03/19 02/03/19 Range/Units 05:08 05:08 WBC 4.15 (4.0-11.0) K/uL RBC 2.74 L (4.30-5.90) M/uL Hgb 9.0 L (12.0-16.0) g/dL Hct 27.3 L (36.0-46.0) % MCV 99.6 H (80.0-98.0) fL MCH 32.8 H (27.0-32.0) pg MCHC 33.0 (31.0-37.0) g/dL RDW Std Deviation 50.0 (28.0-62.0) fl RDW Coeff of Unruly 14 (11.0-15.0) % Plt Count 257 (150-400) K/uL MPV 9.30 (7.40-12.00) fL Neut % (Auto) 53.7 (48.0-80.0) % Lymph % (Auto) 34.2 (16.0-40.0) % [place] % (Auto) 8.0 (0.0-15.0) % Eos % (Auto) 3.6 (0.0-7.0) % Baso % (Auto) 0.5 (0.0-1.5) % Neut # (Auto) 2.2 (1.4-5.7) K/uL Lymph # (Auto) 1.4 (0.6-2.4) K/uL [place] # (Auto) 0.3 (0.0-0.8) K/uL Eos # (Auto) 0.2 (0.0-0.7) K/uL Baso # (Auto) 0.0 (0.0-0.1) K/uL Nucleated RBC % 0.0 /100WBC Nucleated RBCs # 0 K/uL Absolute Retic (20-80) K/uL Percent Retic (0.5-1.5) % Immature Retic Fraction % Sodium 146 H (136-145) mmol/L Potassium 3.2 L (3.5-5.1) mmol/L Chloride 111 H (98-107) mmol/L Carbon Dioxide 23.8 (21.0-32.0) mmol/L BUN 1 L (7.0-18.0) mg/dL Creatinine 0.7 (0.6-1.0) mg/dL Est Cr Clr Drug Dosing 91.01 mL/min Estimated GFR (MDRD) > 60.0 ml/min Glucose 91 (74-106) mg/dL Calcium 7.2 L (8.5-10.1) mg/dL Phosphorus 3.8 (2.6-4.7) mg/dL Magnesium 1.7 L (1.8-2.4) mg/dL Iron (50-175) ug/dL TIBC (250-450) ug/dL % Saturation (20-55) % Transferrin (200-400) ug/dL Ferritin (8-252) ng/mL Total Bilirubin 0.4 (0.2-1.0) mg/dL AST 24 (15-37) IU/L ALT 15 (14-63) IU/L Alkaline Phosphatase 112 (46-116) U/L Total Protein 4.7 L (6.4-8.2) g/dL Albumin 2.1 L (3.4-5.0) g/dL Globulin 2.6 (2.6-4.0) g/dL Albumin/Globulin Ratio 0.8 L (0.9-1.6) Vitamin B12 (193-986) pg/mL Folate (8.60-58.90) ng/mL CHE Results - Last 24 hrs: Microbiology 01/31/19 17:57 Urine Culture - Final Urine, Clean Catch MIXED KVNG >100,000 CFU/ML Med Orders - Current: Current Medications Acetaminophen (Tylenol) 325 mg PO Q6H PRN PRN Reason: Pain Last Admin: 02/03/19 08:57 Dose: 325 mg Folic Acid (Folic Acid) 1 mg IV DAILY [facility] Last Admin: 02/03/19 08:06 Dose: 1 mg Pantoprazole Sodium 40 mg/ (Sodium Chloride) 10 mls @ 300 mls/hr IV Q24H [facility] Last Admin: 02/02/19 16:34 Dose: 300 mls/hr Ceftriaxone Sodium/Dextrose 1 (gm/ Premix) 50 mls @ 100 mls/hr IV Q24H [facility] Last Admin: 02/02/19 19:11 Dose: 100 mls/hr Lorazepam (Ativan) 0 mg IVPUSH Q2H PRN; Protocol PRN Reason: CIWAA Ondansetron HCl (Zofran) 4 mg IVPUSH Q4H PRN PRN Reason: Nausea Sodium Chloride (Saline Flush) 10 ml FLUSH ASDIRECTED PRN PRN Reason: Keep Vein Open Last Admin: 01/31/19 14:48 Dose: 10 ml Sodium Chloride (Saline Flush) 2.5 ml FLUSH ASDIRECTED PRN PRN Reason: Keep Vein Open Last Admin: 01/31/19 14:48 Dose: 2.5 ml Discontinued Medications Acetaminophen (Tylenol) 325 mg PO DAILY [facility] Last Admin: 02/01/19 23:52 Dose: 325 mg Acetaminophen (Tylenol) 325 mg PO DAILY PRN PRN Reason: Pain Last Admin: 02/02/19 19:09 Dose: 325 mg Aspirin (Aspirin) 325 mg PO ONETIME ONE Stop: 01/31/19 21:04 Last Admin: 01/31/19 21:39 Dose: 325 mg Calcium Gluconate (Calcium Gluconate) 1 gm IV ONETIME ONE Stop: 02/01/19 07:58 Last Admin: 02/01/19 09:54 Dose: Not Given Gadobenate Dimeglumine (Multihance) 12 ml IVPUSH ONETIME STA Stop: 01/31/19 20:06 Last Admin: 01/31/19 20:06 Dose: 12 ml Sodium Chloride (Normal Saline) 1,000 mls @ 999 mls/hr IV STAT ONE Stop: 01/31/19 15:12 Last Admin: 01/31/19 15:33 Dose: Not Given Multivitamins/Minerals 10 ml/Thiamine HCl 500 mg/ Folic Acid 1 mg/ Magnesium Sulfate 1 gm/ Sodium Chloride 1,017.2 mls @ 999 mls/hr IV ASDIRECTED ONE Stop: 01/31/19 15:31 Last Admin: 01/31/19 14:46 Dose: 999 mls/hr Potassium Chloride 40 meq/ (Premix) 100 mls @ 25 mls/hr IV ONETIME ONE Stop: 01/31/19 19:28 Last Admin: 01/31/19 15:50 Dose: 25 mls/hr Sodium Chloride (Normal Saline) 1,000 mls @ 150 mls/hr IV ASDIRECTED [facility] Last Admin: 01/31/19 15:51 Dose: 150 mls/hr Magnesium Sulfate 4 gm/ Premix 100 mls @ 50 mls/hr IV ONETIME ONE Stop: 01/31/19 18:07 Last Admin: 01/31/19 18:27 Dose: 50 mls/hr Sodium Chloride (Normal Saline) 1,000 mls @ 175 mls/hr IV ASDIRECTED [facility] Potassium Phosphate 30 mmole/ (Sodium Chloride) 510 mls @ 75 mls/hr IV ONETIME ONE Stop: 01/31/19 23:38 Last Admin: 02/01/19 02:13 Dose: Not Given Potassium Chloride/Sodium Chloride (Normal Saline With 20 Meq Kcl) 1,000 mls @ 175 mls/hr IV ASDIRECTED [facility] Last Admin: 02/01/19 07:36 Dose: 175 mls/hr Thiamine HCl 500 mg/ Sodium (Chloride) 105 mls @ 210 mls/hr IV Q8H [facility] Last Admin: 02/03/19 05:43 Dose: 210 mls/hr Potassium Phosphate 30 mmole/ (Sodium Chloride) 510 mls @ 75 mls/hr IV ONETIME ONE Stop: 02/01/19 02:17 Last Admin: 01/31/19 21:49 Dose: 75 mls/hr Calcium Gluconate 1 gm/ Sodium (Chloride) 60 mls @ 120 mls/hr IV 02/01/19@1000 [facility] Stop: 02/01/19 10:29 Last Admin: 02/01/19 10:06 Dose: 120 mls/hr Potassium Chloride/Sodium Chloride (Normal Saline With 20 Meq Kcl) 1,000 mls @ 100 mls/hr IV ASDIRECTED [facility] Last Admin: 02/02/19 02:19 Dose: 100 mls/hr Magnesium Sulfate 4 gm/ Premix 100 mls @ 50 mls/hr IV ONETIME ONE Stop: 02/02/19 10:03 Last Admin: 02/02/19 08:41 Dose: 50 mls/hr Iron Sucrose 100 mg/ Sodium (Chloride) 105 mls @ 400 mls/hr IV DAILY [facility] Stop: 02/06/19 09:16 Last Admin: 02/02/19 12:59 Dose: 400 mls/hr Magnesium Sulfate 2 gm/ Premix 50 mls @ 50 mls/hr IV ONETIME ONE Stop: 02/03/19 08:53 Last Admin: 02/03/19 08:06 Dose: 50 mls/hr Iron Sucrose 100 mg/ Sodium (Chloride) 105 mls @ 400 mls/hr IV DAILY [facility] Stop: 02/03/19 09:16 Last Admin: 02/03/19 09:28 Dose: 400 mls/hr Morphine Sulfate (Morphine) 2 mg IVPUSH Q2H PRN PRN Reason: Pain Potassium Chloride (Klor-Con M20) 20 meq PO ONETIME ONE Stop: 02/01/19 00:55 Last Admin: 02/01/19 01:05 Dose: 20 meq Potassium Chloride (Klor-Con M20) 40 meq PO ONETIME ONE Stop: 02/02/19 08:04 Last Admin: 02/02/19 08:40 Dose: 40 meq Potassium Chloride (Klor-Con M20) 40 meq PO ONETIME ONE Stop: 02/03/19 07:55 Last Admin: 02/03/19 08:05 Dose: 40 meq Sodium Phosphate (Neutra-Phos) 250 mg PO QID [facility] Last Admin: 02/03/19 05:44 Dose: 250 mg - Exam General: Reports: Alert, Oriented, Cooperative, No Acute Distress Lungs: Reports: Clear to Auscultation, Normal Respiratory Effort Cardiovascular: Reports: Regular Rate, Regular Rhythm GI/Abdominal Exam: Normal Bowel Sounds, Soft, Non-Tender Extremities: Normal Inspection, Normal Range of Motion, Non-Tender Neurological: Reports: No New Focal Deficit Psy/Mental Status: Reports: Alert, Normal Affect, Normal Mood *Q Meaningful Use (DIS) - VTE *Q VTE Pharmacological Contraindications *Q: Risk of Bleeding (alcohol abuse, possible varices.)
== END 2019-02-03 11:28 | disposition home or self-care (01) | DRG 640 ==
LOC: MW.ED 14:06 → MW.ICU 16:44 → MW.MS 02-02 09:50
PROVIDERS: ADMIT Internal Medicine; ATTEND Internal Medicine
DX: E51.2 Wernicke's encephalopathy (principal); K85.20 Alcohol induced acute pancreatitis without necrosis or infection; F10.239 Alcohol dependence with withdrawal, unspecified; N39.0 Urinary tract infection, site not specified; E83.42 Hypomagnesemia; E83.39 Other disorders of phosphorus metabolism; E87.6 Hypokalemia; I10 Essential (primary) hypertension; D63.8 Anemia in other chronic diseases classified elsewhere; K21.9 Gastro-esophageal reflux disease without esophagitis; F17.220 Nicotine dependence, chewing tobacco, uncomplicated; G89.29 Other chronic pain; M54.9 Dorsalgia, unspecified; G43.909 Migraine, unspecified, not intractable, without status migrainosus; E03.9 Hypothyroidism, unspecified; E66.9 Obesity, unspecified; K27.9 Peptic ulcer, site unspecified, unspecified as acute or chronic, without hemorrhage or perforation; Z88.6 Allergy status to analgesic agent; Z88.5 Allergy status to narcotic agent; Z88.8 Allergy status to other drugs, medicaments and biological substances; Z90.49 Acquired absence of other specified parts of digestive tract; Z68.26 Body mass index [BMI] 26.0-26.9, adult
CPT/HCPCS: 36415; 70450; 70450-26; 70553; 70553-26; 71045; 71045-26; 74176; 74176-26; 76700; 76700-26; 80048; 80053; 80061; 81001; 82607; 82728; 82746; 83036; 83550; 83690; 83735; 84100; 84425; 84484; 85025; 85045; 87086; 93005; 96365; 96366; 96368; 97110-GP; 97161-GP; 97530-GP; 99285; 99285-25; A9270-GY; A9577; C9113; G0480; J0610; J0696; J1756; J3411; J3475; J3480; J7030; J7040; J7050

== ENCOUNTER 2021-06-05 14:48 | Emergency (ER) | payer OTHER ==
[2021-06-05] MEDS ORDERED: Dexamethasone 10 MG/ML SDV IVPUSH ONE (15:45)
[2021-06-05] MEDS ORDERED: Sodium Chloride 0.9% 2.5 ML Syringe FLUSH PRN (15:45)
[2021-06-05] MEDS ORDERED: Sodium Chloride 0.9% 10 ML Syringe FLUSH PRN (15:45)
[2021-06-05] MEDS ORDERED: Sodium Chloride 0.9% 1,000 ML IV ONE (15:45)
[2021-06-05] MEDS ORDERED: Codeine/guaiFENesin 10-100 MG/5 ML Syrup 5 ML Cup PO ONE (15:46)
[2021-06-05 16:49] LABS: BLOOD UREA NITROGEN,BUN 6 mg/dL (7.0-18.0); CARBON DIOXIDE,CO2 24.6 mmol/L (21.0-32.0); CHLORIDE,CL 108 mmol/L (98-107); GLUCOSE RANDOM 120 mg/dL (74-106); SODIUM,NA 147 mmol/L (136-145)
[2021-06-05 16:55] LABS: CORONAVIRUS COVID-19 NAA NEGATIVE (NEGATIVE); INFLUENZA A NAA NEGATIVE (NEGATIVE); INFLUENZA B NAA NEGATIVE (NEGATIVE)
[2021-06-05] MEDS ORDERED: Iopamidol 755 MG/ML 500 ML Multipack Bottle IVPUSH STA (17:34)
[2021-06-05 18:04] VITALS: BP 107/70; PULSE 91
== END 2021-06-05 17:55 | disposition home or self-care (01) ==
LOC: MW.ED 14:48
DX: J40 Bronchitis, not specified as acute or chronic (principal); R74.01 Elevation of levels of liver transaminase levels; I10 Essential (primary) hypertension; E66.9 Obesity, unspecified; Z68.25 Body mass index [BMI] 25.0-25.9, adult; Z88.5 Allergy status to narcotic agent; Z88.8 Allergy status to other drugs, medicaments and biological substances; Z20.822 Contact with and (suspected) exposure to COVID-19
CPT/HCPCS: 0240U; 36415; 71275; 80053; 84484; 85025; 93005; 96374; 99285; A9270; J1100; J7030; Q9967

== ENCOUNTER 2022-02-10 16:09 | Emergency (ER) | payer OTHER ==
[2022-03-14 11:43] LABS: CORONAVIRUS COVID-19 NAA NEGATIVE (NEGATIVE); INFLUENZA A NAA NEGATIVE (NEGATIVE); INFLUENZA B NAA NEGATIVE (NEGATIVE)
[2022-03-14 11:44] LABS: RESPIRATORY SYNCYTIAL VIR NAA NEGATIVE (NEGATIVE)
== END 2022-02-10 21:03 | disposition critical access hospital (66) ==
LOC: MW.ED 16:09
DX: T78.2XXA Anaphylactic shock, unspecified, initial encounter (principal)
CPT/HCPCS: 0241U; 96361; 96372; 96374; 96375; 99283-25